=== PATIENT | female | born 1980 | race Two or more races ===

== ENCOUNTER 2024-05-24 07:48 | Outpatient (AMB) | payer MEDICAID, SELFPAY ==
--- NOTE | 2024-05-24 07:59 | A.OFFVIS_ITS ---
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 The patient describes her pain as sharp in nature. Her pain has gotten worse over the last year in spite of continued non operative treatments. She has failed the last 6 weeks of conservative treatment which has included Tylenol, anti-inflammatory medicines and physical therapy. The physical therapy seemed to exacerbate her symptoms. She states that her right knee will give out several times per day. The patient states that arthritis does run in her family. Medication List - Last Reconciled 05/24/24 by Steven Knight MD acetaminophen 500 mg PO Q6H PRN celecoxib (Celebrex) 200 mg PO DAILY PRN fluoxetine 40 mg PO DAILY hydroxyzine HCl 10 - 20 mg PO TID PRN methocarbamol 750 mg PO Q6H PRN pantoprazole 40 mg PO BID peg 3350-electrolytes 236-22.74-6.74 -5.86 gram (GaviLyte-G) mL PO Physical Exam Const Other: Well-nourished well-developed very friendly female awake alert and oriented x3 in no acute distress Extrem Other: Bilateral lower extremity examination shows good capillary refill, no skin lesions noted, normal sensation light touch Right knee examination shows a minimal effusion, mild crepitus with range of motion, tenderness along her medial joint line, positive Jenn's test, no instability Results Reviewed Results Reviewed: X-rays of the patient's right knee show mild joint space narrowing most significant in the medial compartment, no acute bony abnormalities Assessment & Plan Assessment & Plan (1) Right knee pain: Code(s): M25.561 - Pain in right knee Category: Medical Plan Ms. Alamo presents with progressively worsening right knee pain and mechanical symptoms most likely due to a medial meniscus tear. I will send her for an MRI of her right knee for further evaluation. I will see her back once the MRI is completed to discuss the findings and treatment options. I will also send her for blood work to rule out an autoimmune disease such as rheumatoid arthritis. I did give her a prescription for Celebrex to help with her symptoms in the meantime. Feel free to call me at any time should questions regarding her orthopedic management arise. Thank you very much for asking me to see this very friendly patient. I spent 22 minutes in reviewing the patient's records and imaging studies, seeing the patient and documenting in the medical record. Orders: Orders C Reactive Protein Today M25.50 - Pain in unspecified joint JESICA Reflex Titer and Pattern Today M25.50 - Pain in unspecified joint Lyme IgG/IgM w/reflex to WB Today M25.50 - Pain in unspecified joint MR knee RT wo con Today M25.561 - Pain in right knee XR knee RT 3V 05/08/24 M25.561 - Pain in right knee XR knee RT 3V Today M25.561 - Pain in right knee Erythrocyte Sedimentation Rate Today M25.50 - Pain in unspecified joint Rheumatoid Factor Today M25.50 - Pain in unspecified joint Medications: New celecoxib (Celebrex) 200 mg PO DAILY PRN 30 caps 3RF pain Coding Level of Care Code New Pt Level 3 (91627) Complex EM visit Add On G2211 Diagnoses Right knee pain M25.561
== END 2024-05-24 08:23 | disposition home or self-care (01) ==
PROVIDERS: PCP Physician Assistant; Referring Provider Physician Assistant; Visit Provider Orthopaedic Surgery
DX: M25.561 Pain in right knee (principal)
CPT/HCPCS: 99203

== ENCOUNTER 2024-05-24 14:14 | Outpatient (REF) | payer MEDICAID, SELFPAY ==
--- NOTE | ~2024-05-24 | XR_ITS ---
EXAMINATION: XR KNEE, RIGHT CLINICAL INFORMATION: Pain in the right knee COMPARISON: None available. TECHNIQUE: Four views of the right knee. FINDINGS: There is mild osteoarthritis of the medial compartment and patellofemoral compartment manifested by marginal osteophytes. Lateral compartment are unremarkable. Trace joint effusion. Surrounding bone and soft tissues unremarkable. XR/XR knee RT 3V IMPRESSION: Mild osteoarthritis of the right knee. Electronically signed by: Joseph Painting MD 05/30/2024 11:07 AM EDT
== END 2024-05-24 14:15 | disposition home or self-care (01) ==
LOC: HO.HOSX 14:14
PROVIDERS: Visit Provider Orthopaedic Surgery
DX: M25.561 Pain in right knee (principal); M25.50 Pain in unspecified joint
CPT/HCPCS: 73562; 99202

== ENCOUNTER 2024-06-23 18:49 | Outpatient (REF) | payer MEDICAID, SELFPAY ==
--- NOTE | ~2024-06-23 | MR_ITS ---
EXAMINATION: MR KNEE WITHOUT CONTRAST, RIGHT CLINICAL INFORMATION: Pain in the right knee. COMPARISON: X-ray of the right knee May 24, 2024. TECHNIQUE: MRI of the knee without contrast was performed using routine sequences on a high-field scanner. FINDINGS: MENISCI: Medial Meniscus: Intact Lateral Meniscus: There is horizontal increased signal in the posterior horn and body of the meniscus, extending to the free edge femoral articular surface, indicative of meniscal tear. There is an associated small meniscal cyst abutting the periphery of the meniscus. This cyst measures up to 15 mm AP, 5 mm craniocaudal and 3 mm transverse. Possible extension of the tear into the anterior horn. LIGAMENTS: Cruciate: Intact small enthesopathic cyst in the tibia at the posterior cruciate ligament attachment. Collateral: Intact EXTENSOR MECHANISM: Intact ARTICULAR CARTILAGE/BONE: Patellofemoral Compartment: There is a focal area of up to high-grade cartilage heterogeneity in the median ridge of the medial facet of the patella extending over approximately 1 cm transverse and craniocaudal. Trochlea cartilage: There is focal cartilage loss with small central osteophyte formation along the proximal medial trochlea . Overall cyut-bz-kyujotcz arthrosis. Medial Compartment: There are marginal osteophytes. Minimal scattered cartilage heterogeneity. Overall mild arthrosis. Lateral Compartment: There are small marginal osteophytes. There is scattered cartilage heterogeneity in the posterior weightbearing portion of the femoral articular surface, with some areas of partial thickness loss. There is a small central osteophyte measuring 3 mm. Overall vcef-ow-rkbetcfk arthrosis. Additional cartilage heterogeneity in the posterior tibial articular surface. Overall xslv-ae-jgokpwdn arthrosis. JOINT FLUID AND BURSAE: There is a mild joint effusion and trace Swartz's cyst. MR/MR knee RT wo con IMPRESSION: 1. Tear of the lateral meniscus with small meniscal cyst. 2. Xmjz-eu-styyggqn arthrosis of the patellofemoral compartment and lateral compartment. Mild arthrosis of the medial compartment. 3. Mild joint effusion and trace Swartz's cyst. Electronically signed by: Joseph Painting MD 07/08/2024 07:48 AM [facility]
== END 2024-06-23 18:50 | disposition home or self-care (01) ==
LOC: HO.MRI 18:49
PROVIDERS: PCP Physician Assistant; Visit Provider Orthopaedic Surgery
DX: M25.561 Pain in right knee (principal)
CPT/HCPCS: 73721

== ENCOUNTER 2024-09-11 11:09 | Outpatient (AMB) | payer MEDICAID, SELFPAY ==
--- NOTE | 2024-09-11 11:09 | MHC.OFFVIS ---
Intake Visit Reasons: TH-Right Knee MRI review Intake Note: Brittney is a 43 year old female who presents with complaints of progressively worsening right knee pain and giving way. The patient describes her pain as sharp in nature. Her pain has gotten worse over the last year in spite of continued non operative treatments. She has failed the last 6 weeks of conservative treatment which has included Tylenol, anti-inflammatory medicines and physical therapy. The physical therapy seemed to exacerbate her symptoms. She states that her right knee will give out several times per day. The patient states that arthritis does run in her family. Allergies No Known Allergies Allergy (Verified 09/11/24 11:12) Medication List - Last Reconciled 09/11/24 by Steven Knight MD acetaminophen 500 mg PO Q6H PRN celecoxib (Celebrex) 200 mg PO DAILY PRN fluoxetine 40 mg PO DAILY hydroxyzine HCl 10 - 20 mg PO TID PRN methocarbamol 750 mg PO Q6H PRN pantoprazole 40 mg PO BID peg 3350-electrolytes 236-22.74-6.74 -5.86 gram (GaviLyte-G) mL PO Physical Exam Const Other: telehealth Telehealth Telehealth Telehealth Platform: Telephone Location of provider rendering services: practice address Location of patient: address on file Patient Identification confirmed using: Name, : Yes Telehealth method: voice only Patient verbally consented to treatment: Yes Patient verbally consented to billing insurance company: Yes Patient informed of any privacy concerns related to visit: Yes Minutes spent on Phone/Video with Pt.: 14 Results Reviewed Results Reviewed: Standing full weight-bearing x-rays of the patient's right knee show mild diffuse joint space narrowing, no acute bony abnormalities MRI of the patient's right knee shows mild degenerative changes as well as tearing of her medial and lateral menisci Assessment & Plan Assessment & Plan (1) Tear of medial meniscus of right knee: Code(s): S83.241A - Other tear of medial meniscus, current injury, right knee, initial encounter Category: Medical Plan Ms. Alamo presents with progressively worsening right knee pain and mechanical symptoms due to tearing of her medial and lateral menisci. I had a lengthy discussion with the patient regarding the treatment options. At this point she has failed continued non operative treatments. The risks and benefits of right knee arthroscopic surgery were discussed at length with the patient. The patient wishes to proceed with surgery. Surgery will likely involve right knee arthroscopic partial medial and lateral meniscectomies. She does understand that she may not get 100% relief of her symptoms depending on the severity of her degenerative changes. The patient will be scheduled for next available date. She will follow-up as instructed. Feel free to call me at any time should questions regarding her orthopedic management arise. Coding Level of Care Code Tele Est Pt Level 2 (57690) Complex EM visit Add On G2211 Diagnoses Tear of medial meniscus of right knee S83.241E
--- OUTSIDE RECORDS SUMMARY | 2024-09-11 12:24 | XMS_ITS | Clinical Summary ---
Author Organization [facility] Address [address] [place] [address] Care Team Providers Care Maintenance Machine Repairer Name Role Phone Poly Gudino PA-C Primary Care Provider Source Comments PLEASE NOTE, if this patient is a minor, it may be UNLAWFUL to discuss sensitive information that is contained in these records (such as FAMILY PLANNING, MENTAL HEALTH or SUBSTANCE ABUSE) with the minor patient's parent or other person without the patient's specific authorization.[facility] Allergies No known active allergies Medications ferrous sulfate 325 mg (65 mg iron) tabletIndicati ons:Other iron deficiency anemia Take 1 Tablet by mouth 2 (two) times daily with a meal 180 Tablet 1 4 Active hydrOXYzine HCL (ATARAX) 10 mg tabletIndicati ons:Depression with anxiety Take 1 Tablet by mouth 3 (three) times daily as needed for anxiety 1-2 tablets TID as needed 90 Tablet 1 4 Active acetaminophen (TYLENOL) 500 mg tabletIndicati ons:Right leg pain Take 1 Tablet by mouth every 6 (six) hours as needed for pain 30 Tablet 4 Active pantoprazole (PROTONIX) 40 mg EC tabletIndicati ons:Other iron deficiency anemia,History of GI bleed TAKE 1 TABLET BY MOUTH TWICE A DAY 30 MINS BEFORE FOOD 90 Tablet 1 4 Active FLUoxetine (PROZAC) 40 mg capsuleIndicat ions:Depressio n with anxiety TAKE 1 CAPSULE BY MOUTH EVERY DAY 90 Capsule 1 5 Active FLUoxetine (PROZAC) 40 mg capsuleIndicat ions:Depressio n with anxiety Take 1 Capsule by mouth once daily 90 Capsule 1 4 08/27/19 25 Discontinued Active Problems Problem Noted Date Diagnosed Date Enlarged thyroid 03/15/2024 Thyroid nodule 03/15/2024 Financial difficulties 03/08/2023 Housing problems 03/08/2023 Lack of access to transportation 03/08/2023 History of GI bleed 01/21/2023 Depression with anxiety 09/17/2022 History of bariatric surgery 11/08/2018 Iron deficiency anemia 11/08/2018 Overview (08/20/2022): Required blood transfusion 2018 Family history of breast cancer in mother 2018 Overview (08/20/2022): MGM and M Aunt Last Assessment & Plan: Referral replaced for genetics. Resolved Problems Problem Noted Date Diagnosed Date Resolved Date Menorrhagia with regular cycle 12/20/2018 08/20/2022 Overview (08/20/2022): Last Assessment & Plan: Ok to restart Depo given tolerated well in the past and need to prevent bleeding due to iron deficiency anemia, but I recommended she wait until breast evaluated in case there is an abnormality which could be hormone sensitive. She agreed. Primary hypertension 11/08/2018 023 PCOS (polycystic ovarian syndrome) 11/08/2018 08/20/2022 Vertigo 11/08/2018 08/20/2022 Immunizations Name Administration Dates Next Due Flu, Multi Dose 0.5 ML 06/03/2022 Hep B,adult,adjuvanted (HEPLISAV) 02/24/2024 INFLUENZA, SEASONAL, INJECTABLE 06/04/2018,05/26 MODERNA COVID-19 VACCINE BIV ALENT, BLUE CAP, 6M+ 06/03/2022 Moderna COVID-19 Vaccine, re d cap blue label, 12+ Primary Series 06/03/2022,12/19/2021,12/14/2020 PNEUMOCOCCAL CONJUGATE PCV 20 (Prevnar) 02/24/20 24 PNEUMOCOCCAL POLYSACCHARIDE PPV23 05/26/2017 TDAP 08/20/2022,08/29/2011 Family History Medical History Relation Name Comments Diabetes Father Breast cancer Maternal Grandmother Breast cancer Mother remission No Known Problems Paternal Grandfather Stomach Cancer Paternal Uncle x 7 sibling s Relation Name Status Comments Father Alive Maternal Grandmother Alive Mother Alive Paternal Grandfather Paternal Uncle Social History Tobacco Use Types Packs/Day Years Used Date Smoking Tobacco: Every Day Cigarettes Passive Smoke Exposure: Never Smokeless Tobacco: Never Tobacco Cessation:Ready to Q uit: Not Asked; Counseling Given: Yes Comments:1/2 pack per week Alcohol Use Standard Drinks/Week Comments Yes 0 (1 standard drink = 0.6 oz pure alcohol) 1/2 bottle bourbon when drinks - every other day Social Connections Answer Date Recorded Connectedness 2 11/25/2023 Financial Resource Strain Answer Date R ecorded Financial Resource Strain 1 2023 Stress Answer Date Recorded Stress 2 11/25/2023 Physical Activity Answer Date Recorded Physical Activity 0 08/20/2022 Food Insecurity Answer Date Recorded Food 1 11/25/2023 Transportation Needs Answer Date Record ed Transportation 1 11/25/2023 Housing Stability Answer Date Recorded Housing 1 11/25/2023 Safety and Environment Answer Date Jr rded Safety 1 11/25/2023 Utilities Answer Date Recorded Utilities 1 11/25/2023 Employment Answer Date Recorded Stress 0 03/08/2023 Comments No Sex and Gender Information Value Date Recorded Sex Assigned at Female 08/15/2022 7:19 AM PST Legal Sex Female 6:49 AM PST Gender Identity Female 08/20/2022 11:37 AM PST Sexual Orientation Straight 08/20/2022 11 :37 AM PST Last Filed Vital Signs Vital Sign Reading Time Taken Comments Blood Pressure 120/90 02/24/2024 9:46 AM EDT Pulse 80 02/24/2024 9:46 AM EDT Temperature 37.1 ??C (98.8 ??F) 02/24/2024 9:46 AM ED T Respiratory Rate 16 02/24/2024 9:46 AM EDT Oxygen Saturation 100% 02/24/2024 9:46 AM EDT Inhaled Oxygen Concentration - - Weight 131.6 kg (290 lb 1.6 oz) 02/24/2024 9:46 AM EDT Height 167.6 cm (5' 6 ) 02/24/2024 9:46 AM EDT Body Mass Index 46.82 02/24/2024 9:46 AM EDT Plan of Treatment Upcoming Encounters Date Type Department Care Team (Late st Contact Info) Description 10/31/2024 11:20 AM EDT Office Visit [facility] [address] [place] [address] Poly Gudino PA-C [address] [place] [address] Health Maintenance Due Date Last Done Comments HPV Screening 1981 Pap + HPV 1981 Cervical Cancer Screening 01/14/2024 Pap Smear 01/14/2024 01/13/2021 Imm-Hepatitis B (2 of 2 - Cp G 2-dose series) 03/23/2024 02/24/2024 [id number] ( season) 2024 06/03/2022, 06/03/2022, 12/19/2021, Additional history exists Imm-Influenza (#1) 2024 06/03/2022, 1 , 05/26/2017 Depression Monitoring 05/26/2024 02/24/2024 , 11/25/2023, 02/01/2023, Additional history exists Alcohol and Drug Screen 08/15/2024 11/25/19 24, 02/01/2023, 08/20/2022 Dental BW 10/14/2024 10/12/2023 Dental Examination 10/14/2024 10/12/2023 Dental Perio Charting 10/14/2024 10/12/2023 Dental Prophy 10/14/2024 10/12/2023 Relationship Safety Screening/Counseling 11/24/2024 11/25/2023, 08/20/2022 Annual Preventive Care Visit 02/23/2025 02/24/2024, 08/20/2022 Hypertension Screening (#1) 02/23/2025 STI Counseling 02/23/2025 02/24/2024 Tobacco Cessation Counseling (#1) 02/23/2025 023 Breast Cancer Screening (Mammogram) 03/14/2025 03/14/2024 Diabetes Screening 02/23/2027 02/24/2024, 0 02/24/2024, 01/26/2023, Additional history exists Lipid Screening 02/23/2027 02/24/2024, 07/16, 08/20/2022 Dental FMX/Pano 10/14/2028 10/12/2023 Imm-DTaP/Tdap/Td (3 - Td or Tdap) 08/20/2032 023, 08/29/2011 HIV Screening Completed 11/25/2023, 02/14, 02/14/2023, Additional history exists Hepatitis C Screening Completed 11/25/2023 , 02/14/2023, 08/20/2022 Imm-Pneumococcal Completed 02/24/2024, 05/26/2017 Cervical Ablation/Cold-Knife Conization Discontinued Cervical Cryotherapy Discontinued Colposcopy Discontinued Endometrial Biopsy Discontinued Excision/Leep Discontinued HPV Genotyping Discontinued Vaginal Pap Discontinued Vulvoscopy Discontinued Procedures Procedure Name Priority Date/Time Associated Diagnosis Comments REFERRAL TO ENDOCRINOLOGY Urgent 06/29/2024 3:00 AM EST Enlarged thyroid Thyroid nodule IMAGING SCANNED DOCUMENT 06/23/2024 3:00 AM EST REFERRAL FOR MAMMOGRAM Routine 3:00 AM EDT Screening mammogram, encounter for HGA1C W/EAG Routine 02/24/2024 10:26 AM EDT Annual physical exam LIPIDS W RFLX TO DIRECT LDL Routine 02/24/2024 10:26 AM EDT Annual physical exam HIV 1/2 AG & AB W/RFLX (4TH GEN) Routine 11/25/2023 11:27 AM EDT Exposure to STD HEPATITIS C AB W/RFLX HCV RNA, QT, RT PCR Routine 11/25/2023 11:27 AM EDT Exposure to STD COMP PERIODONTAL EVALUATION - NEW/EST PATIENT Routine 10/12/2023 4:20 PM EST Caries Retained tooth root Caries of enamel (incipient) Full INTRAORAL - COMP SERIES OF RADIOGRAPHIC IMAGES Routine 10/12/2023 4:20 PM EST Caries Retained tooth root Caries of enamel (incipient) Full PROPHYLAXIS - ADULT Routine 10/12/2023 4:20 PM EST Caries Retained tooth root Caries of enamel (incipient) Full PERIODIC ORAL EVALUATION ESTABLISHED PATIENT Routine 10/12/2023 4:20 PM EST Caries Retained tooth root Caries of enamel (incipient) from Last 3 Months or Most Recently Relevant to Health Maintenance Results * REFERRAL TO ENDOCRINOLOGY (06/29/2024 3:00 AM EST) 06/29/2024 3:00 AM EST Poly Gudino PA-C REFERRAL Final Result * IMAGING SCANNED DOCUMENT (06/23/2024 3:00 AM EST) 06/23/2024 3:00 AM EST Poly Gudino PA-C SCAN IMAGING Final Result * REFERRAL FOR MAMMOGRAM (03/14/2024 3:00 AM EDT) 03/14/2024 3:00 AM EDT Poly Gudino PA-C IMG RFL MAMMO Final Result * HGA1C W/EAG (02/24/2024 10:26 AM EDT) HEMOGLOBIN A1C 5.3 <5.7 % of total Hgb [employer] Comment: For the purpose of screening for the presence of diabetes: <5.7% ? Consistent with the absence of diabetes 5.7-6.4% ?Consistent with increased risk for diabetes ?(prediabetes) > or =6.5% ??Consistent with diabetes This assay result is consistent with a decreased risk of diabetes. Currently, no consensus exists regarding use of hemoglobin A1c for diagnosis of diabetes in children. According to [place] Diabetes Association (ADA) guidelines, hemoglobin A1c <7.0% represents optimal control in non- diabetic patients. Different metrics may apply to specific patient populations. Standards of Medical Care in Diabetes(ADA). ?? EAG (MG/DL) 105 mg/dL SOHM EAG (MMOL/L) 5.8 mmol/L [facility] [employer] [facility] Blood Blood / Unknown 02/24/2024 1 0:26 AM EDT 02/24/2024 10:27 AM EDT Narrative [employer] [facility] - 02/25/2024 9:00 AM EDT FASTING:NO us Poly Gudino PA-C LAB - BLOOD DRAW Edited Resu lt - Final [employer] [address] [address], [employer] [facility] [address] [place] [address] * LIPIDS W RFLX TO DIRECT LDL (02/24/2024 10:26 AM EDT) CHOLESTEROL, TOTAL 169 <200 mg/dL [employer] [facility] HDL CHOLESTEROL 57 > OR = 50 mg/dL [employer] [facility] TRIGLYCERIDES 86 <150 mg/dL [employer] [facility] LDL-CHOLESTEROL 94 99 mg/dL (calc) [employer] [facility] Comment: Reference range: <100 Desirable range <100 mg/dL for primary prevention; ?? <70 mg/dL for patients with CHD or diabetic patients with > or = 2 CHD risk factors. LDL-C is now calculated using the Choco-Daley calculation, which is a validated novel method providing better accuracy than the Friedewald equation in the estimation of LDL-C. Choco CORREA et al. HUNTER. 2013;310(19): 8421-7940 (http://education.Cable-Sense/faq/JAM771) CHOL/HDLC RATIO 3.0 <5.0 (calc) [employer] [facility] NON-HDL CHOLESTEROL 112 <130 mg/dL (calc) [employer] [facility] Comment: For patients with diabetes plus 1 major ASCVD risk factor, treating to a non-HDL-C goal of <100 mg/dL (LDL-C of <70 mg/dL) is considered a therapeutic option. Blood Blood / Unknown 02/24/2024 1 0:26 AM EDT 02/24/2024 10:27 AM EDT Narrative [employer] [facility] - 02/25/2024 9:00 AM EDT FASTING:NO Poly ENGLAND-C LAB - BLOOD DRAW Final Resul t Performing Organization Address [facility]/ZIP Co de Phone Number [employer] [address] [address], [employer] [address] [address] * HEPATITIS C AB W/RFLX HCV RNA, QT, RT PCR (11/25/2023 11:27 AM EDT) HEPATITIS C ANTIBODY NON-REACT ANTHONY NON-REACT ANTHONY [facility] Comment: HCV antibody was non-reactive. There is no laboratory evidence of HCV infection. In most cases, no further action is required. However, if recent HCV exposure is suspected, a test for HCV RNA (test code 16495) is suggested. For additional information please refer to http://education.Homuork/faq/ILE46c7 (This link is being provided for informational/ educational purposes only.) Blood Blood / Unknown 11/25/2023 1 1:27 AM EDT 11/25/2023 11:28 AM EDT Narrative [employer] [facility] - 11/28/2023 4:55 PM EDT FASTING:YES Poly ENGLAND-C LAB - BLOOD DRAW Edited Resu lt - Final Performing Organization Address [facility] Co de Phone Number [employer] [address] [address], [employer] [address] [address] * HIV 1/2 AG & AB W/RFLX (4TH GEN) (11/25/2023 11:27 AM EDT) HIV AG/AB, 4TH GEN NON-REAC TIVE NON-REAC TIVE [facility] Comment: HIV-1 antigen and HIV-1/HIV-2 antibodies were not detected. There is no laboratory evidence of HIV infection. PLEASE NOTE: This information has been disclosed to you from records whose confidentiality may be protected by state law. ??If your state requires such protection, then the state law prohibits you from making any further disclosure of the information without the specific written consent of the person to whom it pertains, or as otherwise permitted by law. A general authorization for the release of medical or other information is NOT sufficient for this purpose. ?? For additional information please refer to http://education.Homuork/faq/CHZ765 (This link is being provided for informational/ educational purposes only.) The performance of this assay has not been clinically validated in patients less than 2 years old. Blood Blood / Unknown 11/25/2023 1 1:27 AM EDT 11/25/2023 11:28 AM EDT Narrative [facility] [employer] [facility] - 11/28/2023 4:55 PM EDT FASTING:YES Poly Gudino PA-C LAB - BLOOD DRAW Final Resul t [facility] [employer] [address] [place] [id number], [employer] [facility] [employer] [address] [place] [phone] from Last 3 Months or Most Recently Relevant to Health Maintenance Insurance [place] [facility] [employer] [address] [employer] Care Teams Maintenance Machine Repairer Relationship Specialty Start Date End Date Poly Gudino PA-C [address] [place] [id number] PCP - General Internal Medicine 05/27/23
--- OUTSIDE RECORDS SUMMARY | 2024-09-11 12:24 | XMS_ITS | Clinical Summary ---
Author Organization [address] [facility] Address [address] [place] [address] Phone Care Team Providers Care Bailer Tenders Supervisor Name Role Phone Poly Gudino Primary Care Provider Allergies No known active allergies Medications Medication Sig Dispensed Refills Start Date End Date Status bisacodyL (DULCOLAX) 5 mg EC tablet Take 2 tabs by mouth right before beginning bowel prep. Follow instructions given by office for timing. 12/27/2023 Active polyethylene glycol 3350 (MIRALAX ORAL) 01/10/2023 Activ e ferrous sulfate 325 mg (65 mg iron) EC tablet Take 1 tablet (325 mg total) by mouth 2 (two) times a day. Active pantoprazole (PROTONIX) 20 mg EC tablet Take 2 Tabs by mouth daily for 180 days. 10/26/2018 Active clotrimazole-betame thasone (LOTRISONE) 1-0.05 % cream Apply to area sparingly twice a day for up to two weeks 02/28/2020 Active cholecalciferol (VITAMIN D-3) 1,250 mcg (50,000 unit) capsule Take 1 Capsule by mouth once a week. 08/06/2023 Active HYDROXYZINE HCL ORAL Take by mouth as needed. Active polyethylene glycol (GoLYTELY) 236-22.74-6.74 -5.86 gram solution 12/21/2023 Activ e Active Problems Problem Noted Date Diagnosed Date Gastric ulcer 05/10/2024 GERD (gastroesophageal reflux disease) 4 Class 3 severe obesity with body mass index (BMI) of 45.0 to 49.9 in adult 05/10/2024 Inverted nipple 12/20/2018 Menorrhagia with regular cycle 12/20/2018 Overview (05/10/2024): Last Assessment & Plan: Ok to restart Depo given tolerated well in the past and need to prevent bleeding due to iron deficiency anemia, but I recommended she wait until breast evaluated in case there is an abnormality which could be hormone sensitive. She agreed. Nipple discharge 12/20/2018 Overview (05/10/2024): Last Assessment & Plan: Reassured pt that this appears physiologic and given that I can express similar fluid from the left nipple, it is likely benign. However, given inverted nipple and family history, would recommend she have US to ensure no evidence of mass behind nipple. Can check prolactin at a later date, but would be elevated now just from exam. Chronic back pain 11/08/2018 Arthritis 11/08/2018 Hypertension 11/08/2018 Iron deficiency anemia 11/08/2018 Overview (05/10/2024): Required blood transfusion 2018 PCOS (polycystic ovarian syndrome) 11/08/2018 Vertigo 11/08/2018 Social History Tobacco Use Types Packs/Day Years Used Date Smoking Tobacco: Every Day Alcohol Use Standard Drinks/Week Comments Not Currently 0 (1 standard drink = 0.6 oz pur e alcohol) Sex and Gender Information Value Date Recorded Sex Assigned at Not on file Gender Identity Not on file Sexual Orientation Not on file Job Start Date Occupation Industry Not on file Not on file Not on file Obstetrics History Last Filed Vital Signs Vital Sign Reading Time Taken Comments Blood Pressure 108/70 02/28/2024 10:14 AM EDT Pulse 83 02/28/2024 10:14 AM EDT Temperature - - Respiratory Rate - - Oxygen Saturation - - Inhaled Oxygen Concentration - - Weight 131 kg (288 lb) 06/12/2024 9:42 AM EDT Height 170.2 cm (5' 7 ) 02/28/2024 10:12 AM EDT Body Mass Index 45.11 02/28/2024 10:12 AM EDT Plan of Treatment Upcoming Encounters Date Type Department Care Team (Late st Contact Info) Description 09/18/2024 2:15 PM EST Office Visit Bariatric Surgery - [employer] [facility] [address] [facility] [address] [place] [address] Olamide Plasencia PA [address] [facility] [address] [place] [address] Health Maintenance Due Date Last Done Comments Pneumococcal Vaccine: Pediat rics (0 to 5 Years) and At-Risk Patients (6 to 64 Years) (1 of 2 - PCV) 11/05/1987 DTaP,Tdap,and Td Vaccines (1 - Tdap) 2000 Hepatitis B Vaccines (1 of 3 - 19+ 3-dose series) 2000 Cervical Cancer Screening: P ap Smear 2002 Breast Cancer Screening 12/29/2020 12/29/2018 Depression Screening 07/24/2022 HIV Screening 07/24/2022 Hepatitis C Screening 07/24/2022 Social Influencers of Health Screening 07/24/2022 COVID-19 Vaccine ( - 2023-2 5 season) 2024 Influenza Vaccine (#1) 2024 Hypertension/CHF/CAD Annual BMP Blood Test 08/05/2024 08/05/2023 Cholesterol Screening (Lipid Panel) 08/05/2028 08/05/2023 HIB Vaccines Aged Out No longer eligi ble based on patient's age to complete this topic HPV Vaccines Aged Out No longer eligi ble based on patient's age to complete this topic Hepatitis A Vaccines Aged Out No long er eligible based on patient's age to complete this topic IPV Vaccines Aged Out No longer eligi ble based on patient's age to complete this topic MMR Vaccines Aged Out No longer eligi ble based on patient's age to complete this topic Meningococcal ACWY Vaccine Aged Out N o longer eligible based on patient's age to complete this topic RSV Immunization Patients Un cally 20 months Aged Out No longer eligible b ased on patient's age to complete this topic Varicella Vaccines Aged Out No longer eligible based on patient's age to complete this topic Procedures Procedure Name Priority Date/Time Associated Diagnosis Comments ANNUAL BMP BLOOD TEST Routine 08/05/2023 LIPID PANEL Routine 08/05/2023 DX MAMMO INCL CAD UNI Routine 12/29/2018 2:37 PM EDT Nipple discharge from Last 3 Months or Most Recently Relevant to Health Maintenance Results * Annual BMP Blood Test (08/05/2023) Annual BMP Blood Test ABSTRACTED Historical Provider MD TRIPP PUCKETT E * Lipid panel (08/05/2023) LDL/HDL Ratio 3 0 - 4 Triglycerides 98 0 - 150 mg/dL Cholesterol 174 0 - 200 mg/dL HDL 64 40 mg/dL LDL Cholesterol 91 0 - 100 mg/dL Blood Venous blood specimen / Unknown Historical Provider LAB BLOOD ORDERAB LES * DX MAMMO INCL CAD UNI (12/29/2018 2:37 PM EDT) Anatomical Region Laterality Modality Mammography 12/20/2018 4:18 PM EDT Narrative 12/29/2018 3:25 PM EDT This is a summary report. The complete report is available in the patient's medical record. If you cannot access the medical record, please contact the sending organization for a detailed fax or copy. Bilateral mammogram. Limited ultrasound of the right breast. History 38 years old female with strong family history for breast cancer. Right nipple discharge for approximately 3 weeks is a clear, whitish, yellowish fluid. Full-field digital mammograms were obtained. Compared with CAD. Additional spot compression cc view of the right breast was obtained. No prior studies available for comparison. There is mixed density breast Glenn. There is no suspicious masses, microcalcifications or architectural distortion. Limited ultrasound of the right breast was performed with attention to the retroareolar area in the upper outer upper inner and lower outer and lower inner quadrants. No cystic or solid masses or acoustic shadowing identified. Conclusions: No mammographic or ultrasonographic evidence for malignancy. Considering patient's strong family history for breast cancer as well as the nipple discharge MRI examination with contrast is recommended for further assessment. Findings were explained to the patient. Patient was advised to follow with his provider for referral for the breast MRI. BI-RADS 0, incomplete, needs additional imaging evaluation. Procedure Note Keely Manning MD - 08/03/2022 This is a summary report. The complete report is available in thepatient's medical record. If you cannot access the medical record, pleasecontact the sending organization for a detailed fax or copy. Bilateral mammogram. Limited ultrasound of the right breast. History 38 years old female with strong family history for breast cancer.Right nipple discharge for approximately 3 weeks is a clear, whitish,yellowish fluid. Full-field digital mammograms were obtained. Compared with CAD. Additionalspot compression cc view of the right breast was obtained. No priorstudies available for comparison. There is mixed density breast Glenn. There is no suspicious masses,microcalcifications or architectural distortion. Limited ultrasound of the right breast was performed with attention to theretroareolar area in the upper outer upper inner and lower outer and lowerinner quadrants. No cystic or solid masses or acoustic shadowingidentified. Conclusions: No mammographic or ultrasonographic evidence for malignancy.Considering patient's strong family history for breast cancer as well asthe nipple discharge MRI examination with contrast is recommended forfurther assessment. Findings were explained to the patient. Patient wasadvised to follow with his provider for referral for the breast MRI. BI-RADS 0, incomplete, needs additional imaging evaluation. Hawa Mckeon MD IMG BI PROCEDURES from Last 3 Months or Most Recently Relevant to Health Maintenance Care Teams Bailer Tenders Supervisor Relationship Specialty Start Date End Date Poly Gudino PA [address] [place] [address] [facility] - General 02/24/24
--- OUTSIDE RECORDS SUMMARY | 2024-09-11 12:24 | XMS_ITS | Clinical Summary ---
Author Organization [facility] Address [address] [place] [address] Care Team Providers Care Revenue Audit Clerk Name Role Phone Poly Gudino PA-C Primary Care Provid er Medications Medication Sig Dispensed Refills Start Date End Date Status FLUoxetine (PROzac) 10 MG capsule Take 1 capsule (10 mg total) by mouth daily. 0 Active hydrOXYzine (ATARAX) 25 MG tablet Take 1 tablet (25 mg total) by mouth. 0 Active pantoprazole (PROTONIX) 40 MG tablet Take 1 tablet (40 mg total) by mouth every morning on an empty stomach. 0 Active ferrous sulfate 325 (65 FE) MG tablet Take 1 tablet (325 mg total) by mouth every morning with breakfast. 0 Active Active Problems Problem Noted Date Diagnosed Date Iron deficiency anemia due to chronic blood loss 02/28/2024 Social History Tobacco Use Types Packs/Day Years Used Date Smoking Tobacco: Every Day Cigarettes Tobacco Cessation:Ready to Q uit: Not Asked; Counseling Given: Not Answered Comments:Currently smoking 3-4 cigs a day Alcohol Use Standard Drinks/Week Comments Not Currently 0 (1 standard drink = 0.6 oz pure alcohol) Stopped drinking in 2022 after GI bleed Sex and Gender Information Value Date Recorded Sex Assigned at Female 02/02/2024 11:31 AM EDT Gender Identity Not on file Sexual Orientation Not on file Job Start Date Occupation Industry Not on file Not on file Not on file Last Filed Vital Signs Vital Sign Reading Time Taken Comments Blood Pressure 141/89 03/22/2024 4:00 PM EDT Pulse 81 03/22/2024 4:00 PM EDT Temperature 36.6 ??C (97.8 ??F) 03/22/2024 4:00 PM ED T Respiratory Rate 18 03/22/2024 4:00 PM EDT Oxygen Saturation 99% 03/22/2024 4:00 PM EDT Inhaled Oxygen Concentration - - Weight 132.1 kg (291 lb 3.6 oz) 03/08/2024 1:49 PM EDT Height 170.2 cm (5' 7 ) 02/28/2024 10:1 2 AM EDT Body Mass Index 45.61 02/28/2024 10:12 AM EDT Plan of Treatment Health Maintenance Due Date Last Done Comments COVID-19 Vaccine (#1) 05/07/1982 Depression Screening 1993 BMI Counseling 11/05/1999 Preventative Health Evaluation 11/05/1999 Tobacco Cessation Counseling 11/05/1999 Cervical Cancer Screening (Pap Smear) 2002 Hepatitis B Vaccines (2 of 2 - CpG 2-dose series) 03/23/2024 02/24/2024 Influenza Vaccine (#1) 2024 , 06/04/2018, 05/26/2017 DTap / Tdap / Td (3 - Td or Tdap) 08/20/2032 08/20/2022, 08/29/2011 Hepatitis C Screening Completed 11/25/2023 Pneumococcal Vaccine Completed 02/24/2024, 05/26/2017 RSV Ped < 20 months Aged Out No longe r eligible based on patient's age to complete this topic Care Teams Revenue Audit Clerk Relationship Specialty Start Date End Date Poly Gudino PA-C [address] [place] [address] PCP - General Physician [employer] 02/02/24
== END 2024-09-11 11:31 | disposition home or self-care (01) ==
LOC: HO.HOS 11:09
PROVIDERS: PCP Physician Assistant; Visit Provider Orthopaedic Surgery
DX: S83.241A Other tear of medial meniscus, current injury, right knee, initial encounter (principal); S83.281A Other tear of lateral meniscus, current injury, right knee, initial encounter
CPT/HCPCS: 99214

== ENCOUNTER → 2024-09-11 11:09 | Outpatient (BNVA) | payer MEDICAID, SELFPAY | PROVIDERS: PCP Physician Assistant; Visit Provider Orthopaedic Surgery ==

== ENCOUNTER 2024-12-12 10:22 | Outpatient (AMB) | payer MEDICAID, SELFPAY ==
--- NOTE | 2024-12-12 10:30 | A.OFFVIS_ITS ---
Vital Signs 12/12/24 10:34 Height 5 ft 7 in Weight 290 lb BMI 45.4 Intake Visit Reasons: Preop RT Knee 12/21/24 DR Intake Note: Brittney is a 44 year old female who presents with complaints of progressively worsening right knee pain and giving way. The patient describes her pain as sharp in nature. Her pain has gotten worse over the last year in spite of continued non operative treatments. She has failed the last 6 weeks of conservative treatment which has included Tylenol, anti-inflammatory medicines and physical therapy. The physical therapy seemed to exacerbate her symptoms. She states that her right knee will give out several times per day. The patient states that arthritis does run in her family. 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 Physical Exam Vital Signs: BMI result Body Mass Index 45.4 Const Other: Well-nourished well-developed very friendly female awake alert and oriented x3 in no acute distress Extrem Other: Bilateral lower extremity examination shows good capillary refill, no skin lesions noted, normal sensation light touch Right knee examination shows a minimal effusion, minimal crepitus with range of motion, tenderness along her medial and lateral joint lines, no instability, positive Jenn's test Results Reviewed Results Reviewed: Standing full weight-bearing x-rays of the patient's right knee show mild diffuse joint space narrowing, no acute bony abnormalities MRI of the patient's right knee shows mild diffuse degenerative changes as well as tearing of her medial and lateral menisci Assessment & Plan Assessment & Plan (1) Tear of medial meniscus of right knee: Code(s): S83.241A - Other tear of medial meniscus, current injury, right knee, initial encounter Category: Medical Plan Ms. Alamo presents with right knee pain and mechanical symptoms due to tearing of her medial and lateral menisci. I had a lengthy discussion with the patient regarding the treatment options. At this point she has failed continued non operative treatments. The risks and benefits of right knee arthroscopic surgery were discussed at length with the patient. The patient wishes to proceed with surgery. Surgery will most likely involve right knee arthroscopic partial medial and lateral meniscectomies. The patient does understand that she may not get 100% relief of her symptoms depending on the severity of her degenerative changes. She was given a prescription for oxycodone at her preoperative appointment. She will follow-up as instructed. Feel free to call me at any time should questions regarding her orthopedic management arise. I spent 21 minutes in reviewing the patient's records and imaging studies, seeing the patient and documenting in the medical record. Coding Level of Care Code Est Pt Level 3 (61321) Complex EM visit Add On G2211 Diagnoses Tear of medial meniscus of right knee S83.241A
[2024-12-12 10:34] VITALS: BMI 45.4
--- OUTSIDE RECORDS SUMMARY | 2024-12-12 11:44 | XMS_ITS | Clinical Summary ---
Author Organization [facility] Address [address] [place] [address] Care Team Providers Care Foreign Banknote Teller Trader Name Role Phone Poly Gudino PA-C Primary [...] EVERY DAY 90 Capsule 1 5 Active folic acid (FOLVITE) 1 mg tabletIndicati ons:Low folate Take 1 Tablet by mouth once daily 90 Tablet 5 Active tranexamic acid (LYSTEDA) 650 mg tablet Take 2 Tablets by mouth 3 (three) times daily for 90 days During menses only. 90 Tablet 2 5 02/12/20 25 Active mefenamic acid (PONSTEL) 250 mg capsule Take 1 Capsule by mouth every 8 (eight) hours as needed for pain or other reason (during menses only. Take with acetaminophen but do not use ibuprofen nor naproxen) 60 Capsule 3 5 Active Active Problems Problem Noted Date Diagnosed [...] ovarian syndrome) 11/08/2018 08/20/2022 Vertigo 11/08/2018 08/20/2022 Encounters Date Type Department Care Team Description 11/13/2024 3:00 PM EDT Office Visit [address] [phone] Colt Berkowitz MD Excessive or frequent menstruation (Primary Dx); Iron deficiency anemia due to chronic blood loss 11/09/2024 Results Follow-Up [address] [phone] Poly Gudino PA-C Other iron deficiency anemia (Primary Dx); Low folate 10/31/2024 11:20 AM EDT Office Visit [address] [phone] Poly Gudino PA-C Other iron deficiency anemia (Primary Dx); Thyroid nodule; Menorrhagia with regular cycle; Blurry vision, bilateral from Last 3 Months Immunizations Immunization Administration Dates Next Due Flu, Multi Dose [...] Types Packs/Day Years Used Date Smoking Tobacco: Some Days Cigarettes Passive Smoke Exposure: Never Smokeless Tobacco: Never Comments:1/2 pack per week Alcohol Use Standard Drinks/Week Comments Yes 0 (1 standard drink = 0.6 oz pur e alcohol) occasionally Social Connections Answer Date Recorded Connectedness 2 [...] Sign Reading Time Taken Comments Blood Pressure 127/88 11/13/2024 3:14 PM EDT Pulse 76 11/13/2024 3:14 PM EDT Temperature 36.9 ??C (98.4 ??F) 10/31/2024 11:50 AM E DT Respiratory Rate 16 11/13/2024 3:14 PM EDT Oxygen Saturation 100% 11/13/2024 3:14 PM EDT Inhaled Oxygen Concentration - - Weight 135.6 kg (299 lb) 11/13/2024 3:14 PM EDT Height 167.6 cm (5' 6 ) 11/13/2024 3:14 PM EDT Body Mass Index 48.26 11/13/2024 3:14 PM EDT Plan of Treatment Upcoming Encounters Date Type Department Care Team (Late st Contact Info) Description 12/17/2024 2:00 PM EDT Office Visit [facility] [address] [place] [address] Poly Gudino PA-C [address] [place] [address] 01/03/2025 8:40 AM EDT Office Visit [address] [place] [phone] Formyeceniano Fang, DO [address] [place] [address] Health Maintenance Due Date Last Done Comments Anxiety Screening 1981 HPV Screening 1981 Pap + HPV 1981 Pap Smear 01/14/2024 01/13/2021 Imm-Hepatitis B (2 of 2 - CpG 2-dose series) 03/23/2024 02/24/2024 [id number] (5 - 2024-25 season) 2024 06/03/2022, 06/03/2022, 12/19/2021, Additional history exists Imm-Influenza (#1) 2024 06/03/2022, 1 , 05/26/2017 Dental BW 10/14/2024 10/12/2023 Dental Examination 10/14/2024 10/12/2023 Dental Perio Charting 10/14/2024 10/12/2023 Dental Prophy 10/14/2024 10/12/2023 Relationship Safety Screening/Counseling 11/24/2024 11/25/2023, 08/20/2022 Cervical Cancer Screening 01/31/2025 Po stponed from 1981 (Patient postponement) Depression Monitoring 01/31/2025 10/31/2024 , 02/24/2024, 11/25/2023, Additional history exists Annual Preventive Care Visit 02/23/2025 02/24/2024, 08/20/2022 Breast Cancer Screening (Mammogram) 03/14/2025 03/14/2024 Tobacco Cessation Counseling (#1) 10/31/2025 08/20/2022 Hypertension Screening (#1) 11/13/2025 Diabetes Screening 02/23/2027 02/24/2024, 0 02/24/2024, 08/05/2023, Additional history exists Lipid Screening 02/23/2027 02/24/2024, 07/16, 08/20/2022 Dental FMX/Pano 10/14/2028 10/12/2023 Imm-DTaP/Tdap/Td (3 - Td or Tdap) 08/20/2032 08/20/2022, 08/29/2011 HIV Screening Completed 11/25/2023, 02/14, 02/14/2023, Additional history exists Hepatitis C Screening Completed 11/25/2023 , 02/14/2023, 08/20/2022 Imm-Pneumococcal Completed 02/24/2024, 05/26/2017 Alcohol and Drug Screen Completed 11/01/19, 11/25/2023, 02/01/2023, Additional history exists Cervical Ablation/Cold-Knife Conization Discontinued Cervical Cryotherapy Discontinued Colposcopy Discontinued Endometrial Biopsy Discontinued Excision/Leep Discontinued HPV Genotyping Discontinued Vaginal Pap Discontinued Vulvoscopy Discontinued Procedures Procedure Name Priority Date/Time Associated Diagnosis Comments REFERRAL SCANNED DOCUMENT 11/29/2024 3:00 AM EDT VITAMIN B12 & FOLATE Routine 10/31/2024 12:08 PM EDT Other iron deficiency anemia IRON, TIBC, FERRITIN PANEL Routine 10/31/2024 12:08 PM EDT Other iron deficiency anemia BLOOD COUNT COMPLETE AUTO&AUTO DIFRNTL WBC Routine 10/31/2024 12:08 PM EDT Other iron deficiency anemia REFERRAL SCANNED DOCUMENT 09/18/2024 3:00 AM EST REFERRAL FOR MAMMOGRAM Routine 03/14/2024 3:00 AM EDT Screening mammogram, encounter for [...] Relevant to Health Maintenance Results * REFERRAL SCANNED DOCUMENT (11/29/2024 3:00 AM EDT) Only the most recent of2 resultswithin the time period is included. 11/29/2024 3:00 AM EDT Poly Gudino PA-C SCAN REFERRAL Final Result * (ABNORMAL) IRON, TIBC, FERRITIN PANEL (10/31/2024 12:08 PM EDT) [facility] IRON, TOTAL 29(L) 40 - 190 mcg/dL [facility] IRON BINDING CAPACITY 512(H) 250 - 450 mcg/dL (calc) [facility] % SATURATION 6(L) 16 - 45 % (calc) [facility] FERRITIN 4(L) 16 - 232 ng/mL [facility] Blood Blood / Unknown 10/31/2024 1 2:08 PM EDT 10/31/2024 12:09 PM EDT Narrative [facility] - 11/01/2024 5:56 AM EDT FASTING:NO Poly Gudino PA-C LAB - BLOOD DRAW Final Resul t [facility] [address] [address], [facility] [address] [place] [address] * (ABNORMAL) VITAMIN B12 & FOLATE (10/31/2024 12:08 PM EDT) [facility] VITAMIN B12 550 200 - 1,100 pg/mL [facility] FOLATE, SERUM 5.0(L) 5.5 ng/mL [facility] Comment: ? Reference Range ? Low: ? <3.4 ? Borderline: ?3.4-5.4 ? Normal: ?>5.4 Blood Blood / Unknown 10/31/2024 1 2:08 PM EDT 10/31/2024 12:09 PM EDT Narrative [facility] - 11/01/2024 5:56 AM EDT FASTING:NO us Poly Gudino PA-C LAB - BLOOD DRAW Final Resul t [facility] [address] [address], [employer] [facility] [address] [place] [address] * (ABNORMAL) BLOOD COUNT COMPLETE AUTO&AUTO DIFRNTL WBC (10/31/2024 12:08 PM EDT) Pathologist [facility] WHITE BLOOD CELL COUNT 7.9 3.8 - 10.8 Thousand/ uL [facility] RED BLOOD CELL COUNT 4.81 3.80 - 5.10 Million/u L [facility] HEMOGLOBIN 11.0(L) 11.7 - 15.5 g/dL [facility] HEMATOCRIT 36.2 35.0 - 45.0 % [facility] MCV 75.3(L) 80.0 - 100.0 fL [facility] MCH 22.9(L) 27.0 - 33.0 pg [facility] MCHC 30.4(L) 32.0 - 36.0 g/dL [facility] Comment: For adults, a slight decrease in the calculated MCHC value (in the range of 30 to 32 g/dL) is most likely not clinically significant; however, it should be interpreted with caution in correlation with other red cell parameters and the patient's clinical condition. RDW 15.5(H) 11.0 - 15.0 % [facility] PLATELET COUNT 316 140 - 400 Thousand/ uL [facility] MPV 11.1 7.5 - 12.5 fL [facility] ABSOLUTE NEUTROPHILS 5,246 1,500 - 7,800 cells/uL [facility] ABSOLUTE LYMPHOCYTES 1,912 850 - 3,900 cells/uL [facility] [facility] ABSOLUTE MONOCYTES 632 200 - 950 cells/uL [facility] [place] [employer] ABSOLUTE EOSINOPHILS 40 15 - 500 cells/uL [facility] [place] [employer] ABSOLUTE BASOPHILS 71 0 - 200 cells/uL [facility] [place] [employer] NEUTROPHILS PCT 66.4 % [facility] LYMPHOCYTES 24.2 % [facility] MONOCYTES 8.0 % [facility] EOSINOPHILS 0.5 % [facility] BASOPHILS 0.9 % [facility] Blood Blood / Unknown 10/31/2024 1 2:08 PM EDT 10/31/2024 12:09 PM EDT Narrative [facility] - 11/01/2024 5:56 AM EDT FASTING:NO Poly Gudino PA-C LAB - BLOOD DRAW Edited Resu lt - Final [facility] [address] [place] [address], [employer] [address] [address] * REFERRAL FOR MAMMOGRAM (03/14/2024 3:00 AM EDT) 03/14/2024 3:00 AM EDT us Poly Gudino PA-C IMG RFL MAMMO Final Result * HGA1C W/EAG (02/24/2024 10:26 AM EDT) HEMOGLOBIN A1C 5.3 <5.7 % of total Hgb [employer] [facility] Comment: For the purpose of screening for the presence of diabetes: <5.7% ? Consistent with the absence of diabetes 5.7-6.4% ?Consistent with increased risk for diabetes ?(prediabetes) > or =6.5% ??Consistent with diabetes This assay result is consistent with a decreased risk of diabetes. Currently, no consensus exists regarding use of hemoglobin A1c for diagnosis of diabetes in children. According to [place] Diabetes Association (ADA) guidelines, hemoglobin A1c <7.0% represents optimal control in non- diabetic patients. Different metrics may apply to specific patient populations. Standards of Medical Care in Diabetes(ADA). ?? EAG (MG/DL) 105 mg/dL [email or web address] [facility] [employer] [facility] EAG (MMOL/L) 5.8 mmol/L [facility] [employer] [facility] Blood Blood / Unknown 02/24/2024 1 0:26 AM EDT 02/24/2024 10:27 AM EDT Narrative [facility] - 02/25/2024 9:00 AM EDT FASTING:NO us Poly Gudino PA-C LAB - BLOOD DRAW Edited Resu lt - Final [facility] [address] [address], [employer] [address] [address] * LIPIDS W RFLX TO DIRECT LDL (02/24/2024 10:26 AM EDT) CHOLESTEROL, TOTAL 169 <200 mg/dL [facility] HDL CHOLESTEROL 57 > OR = 50 mg/dL [employer] [facility] TRIGLYCERIDES 86 <150 mg/dL [facility] LDL-CHOLESTEROL 94 99 mg/dL (calc) [facility] [facility] Comment: Reference range: <100 Desirable range <100 mg/dL for primary prevention; ?? <70 mg/dL for patients with CHD or diabetic patients with > or = 2 CHD risk factors. LDL-C is now calculated using the Choco-Edi calculation, which is a validated novel method providing better accuracy than the Friedewald equation in the estimation of LDL-C. Choco CORREA et al. HUNTER. 2013;310(19): 2298-8757 (http://education.Best Five Reviewed.Boommy Fashion/faq/FWG706) CHOL/HDLC RATIO 3.0 <5.0 (calc) [employer] [facility] NON-HDL CHOLESTEROL 112 <130 mg/dL (calc) [facility] Comment: For patients with diabetes plus 1 major ASCVD risk factor, treating to a non-HDL-C goal of <100 mg/dL (LDL-C of <70 mg/dL) is considered a therapeutic option. Blood Blood / Unknown 02/24/2024 1 0:26 AM EDT 02/24/2024 10:27 AM EDT Narrative [facility] - 02/25/2024 9:00 AM EDT FASTING:NO [employer] LAB - BLOOD DRAW Final Resul t Performing Organization Address [facility] Co de Phone Number [facility] [address] [address], [employer] [address] [address] * HEPATITIS C AB W/RFLX HCV RNA, QT, RT PCR (11/25/2023 11:27 AM EDT) Pathologist [facility] HEPATITIS C ANTIBODY NON-REACT ANTHONY NON-REACT ANTHONY [facility] Comment: HCV antibody was non-reactive. There is no laboratory evidence of HCV infection. In most cases, no further action is required. However, if recent HCV exposure is suspected, a test for HCV RNA (test code 18413) is suggested. For additional information please refer to http://education.LuckyCal/faq/QQB88p2 (This link is being provided for informational/ educational purposes only.) Blood Blood / Unknown 11/25/2023 1 1:27 AM EDT 11/25/2023 11:28 AM EDT Narrative [facility] - 11/28/2023 4:55 PM EDT FASTING:YES [employer] LAB - BLOOD DRAW Edited Resu lt - Final [facility] [address] [address], [employer] [address] [address] * HIV 1/2 AG & AB W/RFLX (4TH GEN) (11/25/2023 11:27 AM EDT) HIV AG/AB, 4TH GEN NON-REAC TIVE NON-REAC TIVE [facility] Comment: HIV-1 antigen and HIV-1/HIV-2 antibodies were [...] ?? For additional information please refer to http://education.LuckyCal/faq/MOX598 (This link is being provided for informational/ educational purposes only.) The performance of this assay has not been clinically validated in patients less than 2 years old. Blood Blood / Unknown 11/25/2023 1 1:27 AM EDT 11/25/2023 11:28 AM EDT Narrative [email or web address] [employer] - 11/28/2023 4:55 PM EDT FASTING:YES Poly Gudino PA-C LAB - BLOOD DRAW Final Resul t [facility] [employer] [address] [address], [facility] [address] [address] from Last 3 Months or Most Recently Relevant to Health Maintenance Insurance [place] D[place] [facility] C3 [facility] Care Teams Foreign Banknote Teller Trader Relationship Specialty Start Date End Date Poly Gudino PA-C [address] [place] [id number] PCP - General Internal Medicine 05/27/23
--- OUTSIDE RECORDS SUMMARY | 2024-12-12 11:44 | XMS_ITS | Clinical Summary ---
Author Organization [facility] Address [address] [place] [address] Care Team Providers Care Underwriting Clerks Supervisor Name Role Phone Poly Gudino PA-C Primary [...] age to complete this topic Care Teams Underwriting Clerks Supervisor Relationship Specialty Start Date End Date Poly Gudino PA-C [address] [place] [address] PCP - General Physician Cloth Doffer 02/02/24
--- OUTSIDE RECORDS SUMMARY | 2024-12-12 11:44 | XMS_ITS | Clinical Summary ---
Author Organization [address] [facility] Address [address] [place] [address] Phone Care Team Providers Care Childhood Development Teacher Name Role Phone Poly Gudino Primary Care Provider Allergies No known active allergies Medications bisacodyL (DULCOLAX) 5 mg EC tablet Take 2 tabs by mouth right before beginning bowel prep. Follow instructions given by office for timing. 4 Active polyethylene glycol 3350 (MIRALAX ORAL) 3 Active ferrous sulfate 325 mg (65 mg iron) EC tablet Take 1 tablet (325 mg total) by mouth 2 (two) times a day. Active pantoprazole (PROTONIX) 20 mg EC tablet Take 2 Tabs by mouth daily for 180 days. 9 Active clotrimazole-be tamethasone (LOTRISONE) 1-0.05 % cream Apply to area sparingly twice a day for up to two weeks 0 Active cholecalciferol (VITAMIN D-3) 1,250 mcg (50,000 unit) capsule Take 1 Capsule by mouth once a week. 3 Active HYDROXYZINE HCL ORAL Take by mouth as needed. Active polyethylene glycol (GoLYTELY) 236-22.74-6.74 -5.86 gram solution 4 Active Active Problems Problem Noted Date Diagnosed [...] PCOS (polycystic ovarian syndrome) 11/08/2018 Vertigo 11/08/2018 Encounters Date Type Department Care Team Description 09/18/2024 2:15 PM EST Office Visit Bariatric Surgery - [address] [place] [address] Olamide Plasencia PA Class 3 severe obesity due to excess calories with serious comorbidity and body mass index (BMI) of 45.0 to 49.9 in adult (CMS/HCC V24, CMS/HCC V28) (Primary Dx); History of tobacco use from Last 3 Months Social History Tobacco Use Types Packs/Day Years Used Date Smoking Tobacco: Every Day Tobacco Cessation:Ready to Q uit: Not Asked; Counseling Given: Not Answered Alcohol Use Standard Drinks/Week Comments Not Currently 0 (1 standard drink = 0.6 oz pur e alcohol) Comments Unknown Sex and Gender Information Value Date Recorded Sex Assigned at Not on file Legal Sex Female 12:43 PM EST Gender Identity Not on file Sexual Orientation Not on file Obstetrics History Last Filed Vital Signs Vital Sign Reading Time Taken Comments Blood Pressure 134/90 09/18/2024 2:14 PM EST Pulse 80 09/18/2024 2:14 PM EST Temperature - - Respiratory Rate - - Oxygen Saturation - - Inhaled Oxygen Concentration - - Weight 134 kg (294 lb 9.6 oz) 09/18/2024 2:14 PM EST Height 170.2 cm (5' 7 ) 09/18/2024 2:14 PM EST Body Mass Index 46.14 09/18/2024 2:14 PM EST Plan of Treatment Health Maintenance Due Date Last Done Comments Cervical Cancer Screening: P ap Smear 2002 Breast Cancer Screening 12/29/2020 12/29/2018 HIV Screening 07/24/2022 Social Influencers of Health Screening 07/24/2022 Hepatitis B Vaccines (2 of 2 - CpG 2-dose series) 03/23/2024 02/24/2024 COVID-19 Vaccine (4 - 2023-2 5 season) 2024 06/03/2022, 12/19/2021, 12/14/2020 Hypertension/CHF/CAD Annual BMP Blood Test 08/05/2024 08/05/2023 Influenza Vaccine (Season Ended) 2025 06/03/2022, 06/04/2018, 05/26/2017 Depression Screening 10/31/2025 10/31/2024 Cholesterol Screening (Lipid Panel) 02/23/2029 02/24/2024, 08/05/2023 DTaP,Tdap,and Td Vaccines (3 - Td or Tdap) 08/20/2032 08/20/2022, 08/29/2011 Hepatitis C Screening Completed 11/25/2023 Pneumococcal Vaccine: Pediatrics (0 to 5 Years) and At-Risk Patients (6 to 64 Years) Completed 02/24/2024, 05/26/2017 HIB Vaccines Aged Out No longer eligi [...] patient's age to complete this topic Meningococcal B Vaccine Aged Out No l onger eligible based on patient's age to complete this topic RSV Immunization Patients Under 20 months Aged Out No longer eligible [...] Annual BMP Blood Test ABSTRACTED Historical Provider HEALTH MAINTENANCE Final Result * Lipid panel (08/05/2023) LDL/HDL Ratio 3 0 - 4 Triglycerides 98 0 - 150 mg/dL Cholesterol 174 0 - 200 mg/dL HDL 64 >=40 mg/dL LDL Cholesterol 91 0 - 100 mg/dL Blood Venous blood specimen / Unknown Historical Provider LAB BLOOD ORDERABLES [facility] l Result * DX MAMMO INCL CAD UNI (12/29/2018 [...] BI-RADS 0, incomplete, needs additional imaging evaluation. us Hawa Mckeon MD IMG BI PROCEDURES Final Res ult from Last 3 Months or Most Recently Relevant to Health Maintenance Insurance MEDICAID - [place] Care Teams Childhood Development Teacher Relationship Specialty Start Date End Date Poly Gudino PA [address] [place] [address] PCP - General 02/24/24
--- OUTSIDE RECORDS SUMMARY | 2024-12-12 11:44 | XMS_ITS | Encounter Summary ---
Author Organization [facility] Address [address] [place] [address] Care Team Providers Care Pedigree Researcher Name Role Phone Poly Gudino PA-C Primary Care Provider [phone] Reason for Referral * Hematology/Oncology (Routine) - Pending Review Specialty Diagnoses / Procedures Referred By Contcaleb t Referred To Contact Diagnoses Other iron deficiency anemia Poly Gudino PA-C [address] [place] [address] Phone: tel: fax: Oncologist, [facility] [address] [place] [address] Phone: tel: fax: Referral ID Status Reason Start Date Expiration Date Visits Requested Visits Authorized [id number] Pending Review Specialty Services Required 11/09/2024 11/09/2025 1 1 Comments Brittney Alamo is a 44 year old female with hx of anemia due to iron deficiency. Patient is not tolerating oral iron. Last iron infusion was last year. Patient needs to follow up with hematology for possible IV iron treatment. Encounter Details Date Type Department Care Team ([facility] st Contact Info) Description 11/09/2024 Results Follow-Up [facility] [address] [place] [phone] Poly Gudino PA-C [address] [place] [phone] Other iron deficiency anemia (Primary Dx); Low folate Social History Tobacco Use Types Packs/Day Years [...] Orientation Straight 08/20/2022 11 :37 AM PST documented as of this encounter Miscellaneous Notes * Result Encounter Note - Poly Gudino PA-C - 11/09/2024 8:44 AM EDT Brittney Alamo, Your lab results were reviewed. Iron level remains low. Referral to follow up with hematology was placed. Also folate was low (vitamin). Folate supplement was sent to your pharmacy to take daily. Follow up in two months. Have a good dayPoly documented in this encounter Plan of Treatment Upcoming Encounters Date Type Department Care Team (Late st Contact Info) Description 12/17/2024 2:00 PM EDT Office Visit [facility] [address] [place] [phone] Poly Gudino PA-C [address] [place] [address] 01/03/2025 8:40 AM EDT Office Visit [address] [phone] Fang Elias DO [address] [place] [address] Scheduled Referrals Name Type Priority Associated Diagnoses Orde r Schedule REFERRAL TO HEMATOLOGY Referral Routine Other iron deficiency anemia Ordered: 11/09/2024 documented as of this encounter Visit Diagnoses Diagnosis Other iron deficiency anemia- Primary Low folate documented in this encounter Additional Health Concerns Assessment Noted Time PHQ-9 Depression Total Score: 5 11/01/19 25 11:50 AM PDT documented as of this encounter Care Teams Pedigree Researcher Relationship Specialty Start Date End Date Poly Gudino PA-C [address] [place] [address] PCP - General Internal Medicine 05/27/23 documented as of this encounter
== END 2024-12-12 11:09 | disposition home or self-care (01) ==
LOC: HO.HOS 10:23
PROVIDERS: PCP Physician Assistant; Visit Provider Orthopaedic Surgery
DX: S83.241A Other tear of medial meniscus, current injury, right knee, initial encounter (principal)
CPT/HCPCS: 99024

== ENCOUNTER → 2024-12-12 10:22 | Outpatient (BNVA) | payer MEDICAID, SELFPAY | PROVIDERS: PCP Physician Assistant; Visit Provider Orthopaedic Surgery | DX: Z01.818 Encounter for other preprocedural examination (principal); S83.241A Other tear of medial meniscus, current injury, right knee, initial encounter | CPT/HCPCS: 99212 ==

== ENCOUNTER 2024-12-21 06:03 | Day surgery (SDC) | payer MEDICAID, SELFPAY ==
[2024-12-19 07:57] VITALS: BMI 45.4
[2024-12-21] VITALS (8 sets, daily range): BP systolic 112–146; BP diastolic 38–93; PULSE 55–78; RESP 12–18; TEMP 36.1–36.6; O2SAT 97–100; BMI 47.1
[2024-12-21] MEDS: Lactated Ringers 1,000 ML 100 ML IVCONT (06:31)
[2024-12-21 06:32] LABS: UPreg QC Valid YES
[2024-12-21 06:34] LABS: Urine Pregnancy NEGATIVE (NEGATIVE)
--- NOTE | 2024-12-21 07:15 | P.CONAN_ITS ---
Documented by User: Sara Kim NP 12/20/24 09:19 HPI - Anesthesia Eval Consult details Narrative: 44yo F for Right Knee Arthroscopy with partial medial and Lateral meniscectomy PMFSH Active Problems Active Problems: All Active Problems Tear of medial meniscus of right knee (Acute) Joint pain (Acute) Right knee pain (Acute) Past Medical History Medical History (Updated 12/21/24 @ 06:47 by Inocencia Lozano, RN) Occasional cigarette smoker Anemia Anxiety Thyroid nodule GERD (gastroesophageal reflux disease) Surgical History Surgical History (Updated 12/21/24 @ 06:46 by Inocencia Lozano RN) Hx of colonoscopy History of esophagogastroduodenoscopy (EGD) Hx of cholecystectomy Hx of appendectomy Hx of thyroidectomy Social History Social History Are you a primary medical care evaluation specialist to a significant other at home: No Do you presently have visiting nurse or other home services: No Alcohol intake: current Alcohol intake frequency: holidays/special occasions only Patient Tobacco Use Status: Current someday Tobacco user Tobacco use type: Cigarette Smoked in Last 30 Days: Yes Patient Interested in Nicotine Replacement: No Substance Use Frequency: Occasionally Have you been hit, kicked, punched, or otherwise hurt by someone within the past year? 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 Allergies Allergy/AdvReac Type Severity Reaction Status Date / Time No Known Allergies Allergy Verified 12/21/24 06:41 Active Medications: Current Medications Cefazolin Sodium/Dextrose (Ancef) 2 gm in 50 mls @ 100 mls/hr IV PREOP ONE Stop: 12/21/24 05:45 Home Medications ?Medication ?Instructions ?Recorded ?Confirmed ?Last Taken ?Type acetaminophen 500 mg tablet 500 mg PO Q6H PRN pain 05/24/24 12/21/24 Unknown History hydroxyzine HCl 10 mg tablet 10 - 20 mg PO TID PRN anxiety 05/24/24 12/21/24 Unknown History methocarbamol 750 mg tablet 750 mg PO Q6H PRN muscle spasm 05/24/24 12/21/24 Unknown History pantoprazole 40 mg tablet,delayed 40 mg PO BID 05/24/24 12/21/24 Unknown History release folic acid 1 mg tablet 1 mg PO DAILY 12/12/24 12/21/24 Unknown History Exam Height,Weight and Vital Signs: Height 5 ft 7 in Weight 131.542 kg Assessment and Plan Assessment Anesthesia Assessment: Chart Reviewed Documented by User: Lisette Edmondson, DO 12/21/24 07:26 PMFSH Past Medical History Medical History (Updated 12/21/24 @ 06:47 by Inocecnia Lozano RN) Occasional cigarette smoker Anemia Anxiety Thyroid nodule GERD (gastroesophageal reflux disease) Family History Family history of problems with anesthesia: No Surgical History Surgical History (Updated 12/21/24 @ 06:46 by Inocencia Lozano RN) Hx of colonoscopy History of esophagogastroduodenoscopy (EGD) Hx of cholecystectomy Hx of appendectomy Hx of thyroidectomy History of Problems with Anesthesia: No Social History Social History Are you a primary medical care evaluation specialist to a significant other at home: No Do you presently have visiting nurse or other home services: No Alcohol intake: current Alcohol intake frequency: holidays/special occasions only Patient Tobacco Use Status: Current someday Tobacco user Tobacco use type: Cigarette Smoked in Last 30 Days: Yes Patient Interested in Nicotine Replacement: No Substance Use Frequency: Occasionally Have you been hit, kicked, punched, or otherwise hurt by someone within the past year? 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 Allergies Allergy/AdvReac Type Severity Reaction Status Date / Time No Known Allergies Allergy Verified 12/21/24 06:41 Home Medications ?Medication ?Instructions ?Recorded ?Confirmed ?Last Taken ?Type acetaminophen 500 mg tablet 500 mg PO Q6H PRN pain 05/24/24 12/21/24 Unknown History hydroxyzine HCl 10 mg tablet 10 - 20 mg PO TID PRN anxiety 05/24/24 12/21/24 Unknown History methocarbamol 750 mg tablet 750 mg PO Q6H PRN muscle spasm 05/24/24 12/21/24 Unknown History pantoprazole 40 mg tablet,delayed 40 mg PO BID 05/24/24 12/21/24 Unknown History release folic acid 1 mg tablet 1 mg PO DAILY 12/12/24 12/21/24 Unknown History Exam Exam Date and Time: 12/21/24 0715 Height,Weight and Vital Signs: Height 5 ft 7 in Weight 131.542 kg Vital Signs Temperature 97.9 F 12/21/24 06:40 Pulse Rate 78 12/21/24 06:40 Respiratory Rate 18 12/21/24 06:40 Blood Pressure 144/74 H 12/21/24 06:40 Pulse Oximetry 100 12/21/24 06:40 Oxygen Delivery Method Room Air 12/21/24 06:40 Temperature 97.9 F 12/21/24 06:40 Pulse Rate 78 12/21/24 06:40 Respiratory Rate 18 12/21/24 06:40 Blood Pressure 144/74 H 12/21/24 06:40 Pulse Oximetry 100 12/21/24 06:40 Oxygen Delivery Method Room Air 12/21/24 06:40 Airway Mallampati Class: I TM Dist: >3cm Neck ROM: Full Loose/Missing/Broken Teeth: Yes (partials removed) Heart: S1S2 Lungs: CTAB Assessment and Plan Assessment Anesthesia Assessment: Anesthesia Plan Discussed and Chart Reviewed Final Anesthetic Review Family History of Problems with Anesthesia: No History of Problems with Anesthesia: No NPO: Yes ASA Class: III Final Preanesthetic Review: No Changes in Pt Med Stat, Meds/Allgs Chart Reviewed, Consent Obtained/Reviewed and Anes Risks/Benef Reviewed Patient Risk: Low Procedure Risk: Low Anesthetic Plan Anesthetic Plan: GA and Agree w/ Assess. and Plan Disposition: Standard PACU
[2024-12-21] MEDS: Acetaminophen 1,000 MG/100 ML PIGGYBACK 400 MG IV (07:30)
[2024-12-21] MEDS: ceFAZolin Sodium/Dextrose,Iso 2 GM/50 ML PIGGYBACK IV (07:30)
[2024-12-21] MEDS: fentaNYL citrate/PF 100 MCG/2 ML VIAL 50 MCG IVPUSH ×2 (08:42→08:51)
--- NOTE | 2024-12-21 08:52 | PM.OP ---
Brief Operative Note Date of Service: 12/21/24 Pre-op diagnosis: Right knee medial meniscus tear, right knee lateral meniscus tear, right knee degenerative joint disease Post-op diagnosis: same Procedure: Right knee arthroscopic partial medial meniscectomy, right knee arthroscopic partial lateral meniscectomy, right knee arthroscopic chondroplasty of the undersurface of the patella Implants: none Surgeon: Steven Knight MD Anesthesia: GLMA Was an Construction Management Assistant used for this Procedure?: No Estimated blood loss (mL): 10 Pathology: none sent Condition: stable Disposition: PACU
--- NOTE | 2024-12-21 08:53 | W.PM.OPN ---
Operative Note Operative Note Date of Service: 12/21/24 Narrative: After the patient was identified as Brittney Alamo and her right knee was initialed by myself they were brought to the operating room where general anesthesia was induced by the anesthesiologist in routine fashion. The patient was given 2 g of IV Ancef for infection prophylaxis. A formal time-out was completed. The patient's right lower extremity was prepped and draped in sterile fashion. Marcaine with epinephrine was injected into the planned incision sites as well as their right knee joint. A # 11 scalpel blade was used to make an anterolateral portal 1 cm proximal to the joint line and 1 cm lateral to the patellar tendon. Blunt trocar technique was used into the suprapatellar pouch with the knee in extension. Diagnostic arthroscopy showed multiple bands of thickened plica which would be excised at the end of the procedure. There were no loose bodies or abnormalities found in either the medial or lateral gutters. There were diffuse grades 2 and 3 degenerative changes of the undersurface of the patella as well as grades 2 and 3 degenerative changes of the trochlear groove. The patient's knee was flexed to 45 degrees and a valgus force was placed upon it. The medial compartment was entered. An anteromedial portal was made 1 cm proximal to the joint line and 1 cm medial to the patellar tendon. Probing of the medial meniscus showed a radial tear of the anterior horn. A partial medial meniscectomy was performed using the arthroscopic shaver. Following the partial meniscectomy the remainder of the meniscus tissue was stable. There were minimal degenerative changes of the medial femoral condyle and medial tibial plateau. The patient's knee was then placed into a neutral position. There was no injury to the anterior cruciate ligament. The patient's knee was then placed into the figure of 4 position and the lateral compartment was entered. There were minimal degenerative changes of the lateral femoral condyle and lateral tibial plateau. There was a radial tear of the anterior horn of the lateral meniscus. A partial lateral meniscectomy was performed using the arthroscopic shaver. The patient's knee was once again brought into extension and the suprapatellar pouch was entered. The arthroscopic shaver and the ArthroCare Wand were used to excise the thickened bands of plica. The undersurface of the patella was then made smooth using the arthroscopic shaver. The articular surface of the trochlear groove was already smooth so no chondroplasty was indicated. The knee joint was irrigated and then drained. All arthroscopic instruments were removed. The 2 portals were closed with 3-0 nylon interrupted suture. The knee joint was injected with Marcaine. Dry sterile dressing and Adriano bandages were placed over the patient's knee. The patient was awoken and extubated in the operating room. They were transferred to the recovery room in stable condition.
[2024-12-21] MEDS: cefTRIAXone sodium 1 GM VIAL IVPUSH (09:08)
== END 2024-12-21 10:25 | disposition home or self-care (01) ==
PROVIDERS: Nurse Practitioner; PCP Physician Assistant; Visit Provider Orthopaedic Surgery
PROC: (CPT 29870; principal; 2024-12-21 07:30)
DX: S83.241A Other tear of medial meniscus, current injury, right knee, initial encounter (principal); S83.281A Other tear of lateral meniscus, current injury, right knee, initial encounter; M25.561 Pain in right knee; M17.11 Unilateral primary osteoarthritis, right knee; M23.51 Chronic instability of knee, right knee; M67.51 Plica syndrome, right knee; X58.XXXA Exposure to other specified factors, initial encounter; Y93.9 Activity, unspecified; Y92.9 Unspecified place or not applicable; Y99.9 Unspecified external cause status; D64.9 Anemia, unspecified; E04.1 Nontoxic single thyroid nodule; F41.9 Anxiety disorder, unspecified; K21.9 Gastro-esophageal reflux disease without esophagitis; F17.210 Nicotine dependence, cigarettes, uncomplicated; Z98.890 Other specified postprocedural states
CPT/HCPCS: 29880; 29876; 81025; J0131; J0171; J0690; J0696; J1100; J1885; J2003; J2250; J2405; J2704; J2795; J3010

== ENCOUNTER → 2024-12-21 06:03 | Outpatient (BNV) | payer MEDICAID, SELFPAY | PROVIDERS: PCP Physician Assistant; Visit Provider Orthopaedic Surgery | DX: S83.241A Other tear of medial meniscus, current injury, right knee, initial encounter (principal); S83.281A Other tear of lateral meniscus, current injury, right knee, initial encounter | CPT/HCPCS: 29880 ==

== ENCOUNTER 2025-01-03 13:47 | Outpatient (AMB) | payer MEDICAID, SELFPAY ==
--- NOTE | 2025-01-03 13:52 | MHC.OFFVIS ---
Intake Visit Reasons: PO RT Knee 12/21/24 Intake Note: Brittney is a 44 year old female who presents today postoperatively after undergoing a RT Knee on 12/21/[address] Knight. Patient reports ongoing pain, with a current pain level of 9 out of 10. She has concerns of bruising on her leg. She is requesting a refill on her pain medication. Allergies No Known Allergies Allergy (Verified 01/03/25 13:59) Medication List - Last Reconciled 01/03/25 by Lindsey Munguia PA-C acetaminophen 500 mg PO Q6H PRN celecoxib (Celebrex) 200 mg PO DAILY PRN folic acid 1 mg PO DAILY hydroxyzine HCl 10 - 20 mg PO TID PRN methocarbamol 750 mg PO Q6H PRN oxycodone 5 mg PO Q6H PRN pantoprazole 40 mg PO BID HPI HPI PO RT Knee 12/21/24 DR: Details: 44-year-old female returns to the office today status post right knee arthroscopy with Dr. Knight on 12/21/2024. She continues to have discomfort in the right knee making it difficult to ambulate. She also has discomfort with bending the knee. She has been taking her pain medication intermittently. [facility] Medical History (Updated 12/21/24 @ 06:47 by Inocencia Lozano RN) Occasional cigarette smoker Anemia Anxiety Thyroid nodule GERD (gastroesophageal reflux disease) Surgical History Hx of colonoscopy History of esophagogastroduodenoscopy (EGD) Hx of cholecystectomy Hx of appendectomy Hx of thyroidectomy Social History Are you a primary caretaker to a significant other at home: No Do you presently have visiting nurse or other home services: No Alcohol intake: current Alcohol intake frequency: holidays/special occasions only Patient Tobacco Use Status: Current someday Tobacco user Tobacco use type: Cigarette Current occupational status: employed 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 No significant joint effusion. Range of motion is 0-80 degrees. Calf supple nontender neurovascularly intact. Results Reviewed Results Reviewed: Brief Operative Note Date of Service: 12/21/24 Pre-op diagnosis: Right knee medial meniscus tear, right knee lateral meniscus tear, right knee degenerative joint disease Post-op diagnosis: same Procedure: Right knee arthroscopic partial medial meniscectomy, right knee arthroscopic partial lateral meniscectomy, right knee arthroscopic chondroplasty of the undersurface of the patella Implants: none Surgeon: Steven Knight MD Assessment & Plan Assessment & Plan (1) Tear of medial meniscus of right knee: Code(s): S83.241A - Other tear of medial meniscus, current injury, right knee, initial encounter Category: Medical Plan: Sutures removed today Steri-Strips applied. I stressed the importance of working with physical therapy to work on range of motion and quad strength and gait training exercises. She was given a cane in the office today to help with her balance as she is struggling with putting full weight on that leg due to her discomfort. She will remain out of work until she sees us back in [address] Knight, sooner if needed. Orders: Orders PT Evaluation and Treatment Today S83.241A - Other tear of medial meniscus, current injury, right knee, initial encounter Coding Level of Care Code Global (62984) Diagnoses Tear of medial meniscus of right knee S83.241A
--- OUTSIDE RECORDS SUMMARY | 2025-01-03 13:58 | XMS_ITS | Clinical Summary ---
Author Organization [facility] Address [address] [place] [address] Care Team Providers Care Seat Builder Name Role Phone Poly Gudino PA-C Primary Care Provider [phone] Source Comments PLEASE NOTE, if this patient [...] Description 11/13/2024 3:00 PM EDT Office Visit [address] [id number] Colt Berkowitz MD Excessive or frequent menstruation (Primary Dx); Iron deficiency anemia due to chronic blood loss 11/09/2024 Results Follow-Up [address] [phone] Poly Gudino PA-C BLOOD COUNT COMPLETE AUTO&AUTO DIFRNTL WBC, IRON, TIBC, FERRITIN PANEL, VITAMIN B12 & FOLATE 10/31/2024 11:20 AM EDT Office Visit [address] [id number] Poly Gudino PA-C Other iron deficiency anemia [...] 20 (Prevnar) 02/24/20 24 PNEUMOCOCCAL POLYSACCHARIDE PPV23 (Pneumovax 23) 05/26/2017 TDAP 08/20/2022,08/29/2011 Family History Medical History [...] 11/13/2024 3:14 PM EDT Plan of Treatment Health Maintenance Due Date Last Done Comments HPV Screening 1981 Pap + HPV 1981 Pap Smear 01/14/2024 01/13/2021 Imm-Hepatitis B (2 of 2 - CpG 2-dose series) 03/23/2024 02/24/2024 [id number] ( season) 2024 06/03/2022, 06/03/2022, 12/19/2021, Additional history exists Imm-Influenza (#1) 2024 06/03/2022, 1 , 05/26/2017 Dental BW 10/14/2024 10/12/2023 Dental Examination 10/14/2024 10/12/2023 Dental Perio Charting 10/14/2024 10/12/2023 Dental Prophy 10/14/2024 10/12/2023 Relationship Safety Screening/Counseling 11/24/2024 11/25/2023, 08/20/2022 Cervical Cancer Screening 01/31/2025 Po stponed from 1981 (Patient postponement) Depression Monitoring 01/31/2025 10/31/2024 , 02/24/2024, 11/25/2023, Additional history exists Anxiety Screening 02/09/2025 02/10/2024 Annual Wellness (Adult): Indicated (All Coverage) 02/23/2025 02/24/2024, 08/20/2022 Breast Cancer Screening (Mammogram) [...] Date/Time Associated Diagnosis Comments REFERRAL SCANNED DOCUMENT 12/12/2024 3:00 AM EDT REFERRAL SCANNED DOCUMENT 11/29/2024 3:00 AM EDT VITAMIN B12 & FOLATE Routine 10/31/2024 12:08 PM EDT Other iron deficiency anemia IRON, TIBC, FERRITIN PANEL Routine 10/31/2024 12:08 PM EDT Other iron deficiency anemia BLOOD COUNT COMPLETE AUTO&AUTO DIFRNTL WBC Routine 10/31/2024 12:08 PM EDT Other iron deficiency anemia REFERRAL FOR MAMMOGRAM Routine 03/14/2024 3:00 AM [...] Health Maintenance Results * REFERRAL SCANNED DOCUMENT (12/12/2024 3:00 AM EDT) Only the most recent of2 resultswithin the time period is included. 12/12/2024 3:00 AM EDT Poly Gudino PA-C SCAN REFERRAL Final Result * (ABNORMAL) IRON, TIBC, FERRITIN PANEL (10/31/2024 12:08 PM EDT) [facility] IRON, TOTAL 29(L) 40 - 190 mcg/dL [facility] IRON BINDING CAPACITY 512(H) 250 - 450 mcg/dL (calc) [facility] % SATURATION 6(L) 16 - 45 % (calc) [facility] FERRITIN 4(L) 16 - 232 ng/mL [facility] Blood Blood / Unknown 10/31/2024 1 2:08 PM EDT 10/31/2024 12:09 PM EDT Narrative [employer] [facility] - 11/01/2024 5:56 AM EDT FASTING:NO us Poly Gudino PA-C LAB - BLOOD DRAW Final Resul t Performing Organization Address City/State/[facility] Co de Phone Number [employer] [address] [address], [facility] [address] [place] [address] * (ABNORMAL) VITAMIN B12 & FOLATE (10/31/2024 12:08 PM EDT) [facility] VITAMIN B12 550 200 - 1,100 pg/mL [facility] FOLATE, SERUM 5.0(L) 5.5 ng/mL [facility] Comment: ? Reference Range ? Low: ? <3.4 ? Borderline: ?3.4-5.4 ? Normal: ?>5.4 Blood Blood / Unknown 10/31/2024 1 2:08 PM EDT 10/31/2024 12:09 PM EDT Narrative [employer] - 11/01/2024 5:56 AM EDT FASTING:NO us Poly Gudino PA-C LAB - BLOOD DRAW Final Resul t [employer] [address] [address], [facility] [address] [place] [address] * (ABNORMAL) BLOOD COUNT COMPLETE AUTO&AUTO DIFRNTL WBC (10/31/2024 12:08 PM EDT) Pathologist [facility] WHITE BLOOD CELL COUNT 7.9 3.8 - 10.8 Thousand/ uL [facility] RED BLOOD CELL COUNT 4.81 3.80 - 5.10 Million/u L [facility] HEMOGLOBIN 11.0(L) 11.7 - 15.5 g/dL [facility] HEMATOCRIT 36.2 35.0 - 45.0 % [facility] MCV 75.3(L) 80.0 - 100.0 fL [facility] MCH 22.9(L) 27.0 - 33.0 pg [facility] MCHC 30.4(L) 32.0 - 36.0 g/dL [facility] Comment: For adults, a slight decrease in the calculated MCHC value (in the range of 30 to 32 g/dL) is most likely not clinically significant; however, it should be interpreted with caution in correlation with other red cell parameters and the patient's clinical condition. RDW 15.5(H) 11.0 - 15.0 % [facility] PLATELET COUNT 316 140 - 400 Thousand/ uL [facility] MPV 11.1 7.5 - 12.5 fL [facility] ABSOLUTE NEUTROPHILS 5,246 1,500 - 7,800 cells/uL [facility] ABSOLUTE LYMPHOCYTES 1,912 850 - 3,900 cells/uL [facility] ABSOLUTE MONOCYTES 632 200 - 950 cells/uL [facility] ABSOLUTE EOSINOPHILS 40 15 - 500 cells/uL [facility] ABSOLUTE BASOPHILS 71 0 - 200 cells/uL [facility] NEUTROPHILS PCT 66.4 % [facility] [employer] LYMPHOCYTES 24.2 % [facility] [employer] MONOCYTES 8.0 % [facility] EOSINOPHILS 0.5 % [facility] [employer] BASOPHILS 0.9 % [facility] Blood Blood / Unknown 10/31/2024 1 2:08 PM EDT 10/31/2024 12:09 PM EDT Narrative [employer] - 11/01/2024 5:56 AM EDT FASTING:NO us Poly Gudino PA-C LAB - BLOOD DRAW Edited Resu lt - Final [employer] [address] [address], [facility] [address] [place] [address] * REFERRAL FOR MAMMOGRAM SCREENING (03/14/2024 3:00 AM EDT) 03/14/2024 3:00 AM EDT us Poly Gudino PA-C IMG RFL MAMMO Final Result * HGA1C W/EAG (02/24/2024 10:26 AM EDT) HEMOGLOBIN A1C 5.3 <5.7 % of total Hgb [facility] Comment: For the purpose of screening for the presence of diabetes: <5.7% ? Consistent with the absence of diabetes 5.7-6.4% ?Consistent with increased risk for diabetes ?(prediabetes) > or =6.5% ??Consistent with diabetes This assay result is consistent with a decreased risk of diabetes. Currently, no consensus exists regarding use of hemoglobin A1c for diagnosis of diabetes in children. According to [place] Diabetes Association (ADA) guidelines, hemoglobin A1c <7.0% represents optimal control in non- diabetic patients. Different metrics may apply to specific patient populations. Standards of Medical Care in Diabetes(ADA). ?? EAG (MG/DL) 105 mg/dL [facility] [employer] EAG (MMOL/L) 5.8 mmol/L [facility] [employer] Blood Blood / Unknown 02/24/2024 1 0:26 AM EDT 02/24/2024 10:27 AM EDT Narrative [facility] - 02/25/2024 9:00 AM EDT FASTING:NO Poly Gudino PA-C LAB - BLOOD DRAW Edited Resu lt - Final Performing Organization Address [facility] Co de Phone Number [employer] [facility] [address] [address], [employer] [address] [address] * LIPIDS W RFLX TO DIRECT LDL (02/24/2024 10:26 AM EDT) [facility] Signature CHOLESTEROL, TOTAL 169 <200 mg/dL [facility] [facility] HDL CHOLESTEROL 57 > OR = 50 mg/dL [facility] [facility] TRIGLYCERIDES 86 <150 mg/dL [facility] [facility] LDL-CHOLESTEROL 94 99 mg/dL (calc) [facility] [facility] Comment: Reference range: <100 Desirable range <100 mg/dL for primary prevention; ?? <70 mg/dL for patients with CHD or diabetic patients with > or = 2 CHD risk factors. LDL-C is now calculated using the Choco-Edi calculation, which is a validated novel method providing better accuracy than the Friedewald equation in the estimation of LDL-C. Choco SS et al. HUNTER. 2013;310(19): 7863-7046 (http://education.Intralign/faq/QLI643) CHOL/HDLC RATIO 3.0 <5.0 (calc) [employer] [facility] NON-HDL CHOLESTEROL 112 <130 mg/dL (calc) [employer] [facility] Comment: For patients with diabetes plus 1 major ASCVD risk factor, treating to a non-HDL-C goal of <100 mg/dL (LDL-C of <70 mg/dL) is considered a therapeutic option. Blood Blood / Unknown 02/24/2024 1 0:26 AM EDT 02/24/2024 10:27 AM EDT Narrative [employer] [facility] - 02/25/2024 9:00 AM EDT FASTING:NO Poly ENGLAND-C LAB - BLOOD DRAW Final Resul t Performing Organization Address City/[facility]/ZIP Co de Phone Number [employer] [facility] [address] [address], [employer] [facility] [address] [place] [address] * HEPATITIS C AB W/RFLX HCV RNA, QT, RT PCR (11/25/2023 11:27 AM EDT) Pathologist [facility] HEPATITIS C ANTIBODY NON-REACT ANTHONY NON-REACT ANTHONY [employer] [facility] Comment: HCV antibody was non-reactive. There is no laboratory evidence of HCV infection. In most cases, no further action is required. However, if recent HCV exposure is suspected, a test for HCV RNA (test code 65731) is suggested. For additional information please refer to http://education.Credit Karma/faq/OHS81v8 (This link is being provided for informational/ educational purposes only.) Blood Blood / Unknown 11/25/2023 1 1:27 AM EDT 11/25/2023 11:28 AM EDT Narrative [facility] - 11/28/2023 4:55 PM EDT FASTING:YES Poly Gudino PA-C LAB - BLOOD DRAW Edited Resu lt - Final [employer] [address] [address], [employer] [address] [address] * HIV 1/2 AG & AB W/RFLX (4TH GEN) (11/25/2023 11:27 AM EDT) Pathologist [facility] HIV AG/AB, 4TH GEN NON-REAC TIVE NON-REAC TIVE [employer] [facility] Comment: HIV-1 antigen and HIV-1/HIV-2 antibodies were [...] ?? For additional information please refer to http://education.Credit Karma/faq/YYH397 (This link is being provided for informational/ educational purposes only.) The performance of this assay has not been clinically validated in patients less than 2 years old. Blood Blood / Unknown 11/25/2023 1 1:27 AM EDT 11/25/2023 11:28 AM EDT Narrative [facility] [employer] - 11/28/2023 4:55 PM EDT FASTING:YES us Poly Gudino PA-C LAB - BLOOD DRAW Final Resul t [employer] [place] [employer] [address] [place] [address], [employer] [address] [address] from Last 3 Months or Most Recently Relevant to Health Maintenance Insurance [place] D[place] [facility] [id number] [employer] Care Teams Seat Builder Relationship Specialty Start Date End Date Poly Gudino PA-C [address] [place] [address] PCP - General Internal Medicine 05/27/23
== END 2025-01-03 14:59 | disposition home or self-care (01) ==
LOC: HO.HOS 13:48
PROVIDERS: PCP Physician Assistant; Visit Provider Physician Assistant
DX: S83.241A Other tear of medial meniscus, current injury, right knee, initial encounter (principal)
CPT/HCPCS: 99024

== ENCOUNTER → 2025-01-03 13:47 | Outpatient (BNVA) | payer MEDICAID, SELFPAY | PROVIDERS: PCP Physician Assistant; Visit Provider Physician Assistant | DX: S83.241D Other tear of medial meniscus, current injury, right knee, subsequent encounter (principal); X58.XXXD Exposure to other specified factors, subsequent encounter; Z98.890 Other specified postprocedural states | CPT/HCPCS: 99212 ==

== ENCOUNTER 2025-01-30 13:52 | Outpatient (AMB) | payer MEDICAID, SELFPAY ==
--- NOTE | 2025-01-30 13:55 | MHC.OFFVIS ---
Vital Signs 01/30/25 14:00 Height 5 ft 7 in Weight 300 lb BMI 47.0 Intake Visit Reasons: PO RT Knee 12/21/24 Intake Note: Brittney is a 44 year old female who presents today postoperatively after undergoing a right knee arthroscopy on 12/21/24. At her first post-operative visit she was referred to physical therapy. Patient reports she is walking better but has a real hard time at night. She would like a refill of the ibuprofen and oxycodone. Patient states she will be starting physical therapy the first week of February. She has not yet returned to work. Allergies No Known Allergies Allergy (Verified 01/30/25 13:59) Medication List - Last Reconciled 01/30/25 by Steven Knight MD acetaminophen 500 mg PO Q6H PRN celecoxib (Celebrex) 200 mg PO DAILY PRN folic acid 1 mg PO DAILY hydroxyzine HCl 10 - 20 mg PO TID PRN ibuprofen 800 mg PO Q8H PRN 30 days oxycodone 5 mg PO Q12H PRN 7 days pantoprazole 40 mg PO BID PFSH Medical History (Updated 12/21/24 @ 06:47 by Inocencia Lozano RN) Occasional cigarette smoker Anemia Anxiety Thyroid nodule GERD (gastroesophageal reflux disease) Surgical History Hx of colonoscopy History of esophagogastroduodenoscopy (EGD) Hx of cholecystectomy Hx of appendectomy Hx of thyroidectomy Social History Are you a primary customer care agent to a significant other at home: No Do you presently have visiting nurse or other home services: No Alcohol intake: current Alcohol intake frequency: holidays/special occasions only Patient Tobacco Use Status: Current someday Tobacco user Tobacco use type: Cigarette Current occupational status: employed 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 Alamo continues to do fairly well after undergoing right knee arthroscopic surgery on 12/21/2024. She will go to physical therapy as scheduled next month. She will be cleared to return to work once her discomfort and strength have improved. She will contact me prior to her follow-up appointment in 2-3 months should any questions or concerns arise. Feel free to call me at any time should questions regarding her orthopedic management arise. Medications: Changed From oxycodone Partial Fill upon patient request. 5 mg PO Q12H 7 days PRN 14 tabs 0RF pain To oxycodone Partial Fill upon patient request. 5 mg PO Q24H PRN 10 tabs 0RF pain Refilled ibuprofen 800 mg PO Q8H PRN 90 tabs 3RF pain 30 days S52.209D - Unspecified fracture of shaft of unspecified ulna, subsequent encounter for closed fracture with routine healing Coding Level of Care Code Global (86554) Diagnoses Right knee pain M25.561
[2025-01-30 14:00] VITALS: BMI 47.0
--- OUTSIDE RECORDS SUMMARY | 2025-01-30 15:55 | XMS_ITS | Encounter Summary ---
Author Organization [facility] Address [address] [place] [address] Care Team Providers Care Medical Field Representative Name Role Phone Juanita Altamirano MD Primary Care Provider Un available Axel Miller MD Primary Care Provider Unavai Juanita Craven MD Primary Care Provider Un available Kayla Emerson NP Primary Care Provider Unava ilable Poly Gudino Primary Care Provider Unava ilable Reason for Visit * Reason Onset Date Comments Medical Records 10/26/2018 Encounter Details Date Type Department Care Team Description 10/26/2018 Telephone OBGYN - [facility] [address] [place] [address] Yolie Jacobs CNM [address] [place] [address] Medical Records Social History Tobacco Use Types Packs/Day Years Used Date Smoking Tobacco: Every Day Cigarettes 0.5 20 Smokeless Tobacco: Never Alcohol Use Standard Drinks/Week Comments Yes 0 (1 standard drink = 0.6 oz pur e alcohol) rare Sex Assigned at Date Recorded Female 04/07/2022 11:45 AM EDT Job Start Date Occupation Industry Not on file Not on file Not on file documented as of this encounter Miscellaneous Notes * Telephone Encounter - Yolie Greenwood - 11/16/2018 11:45 AM EDT 11/16/18 Lmom for pt to call and schedule appt, records rec'd. * Telephone Encounter - Yoliedewey Greenwood - 10/26/2018 12:40 PM EDT Pt referred by PCP. Pt stopped by the office. KAYLEE signed for [facility]. Copied and sent to [employer]. Pt aware appt cannot be scheduled until records are rec'd. Pt prefers female provider for this annual. documented in this encounter Plan of Treatment Not on file documented as of this encounter Visit Diagnoses Not on filedocumented in this encounter Care Teams Medical Field Representative Relationship Specialty Start Date End Date Juanita Altamirano MD PCP - General Internal Medicine 10/25/18 04/28/21 Axel Miller MD PCP - General Internal Medicine 04/29/21 06/29/21 Juanita Altamirano MD PCP - General Internal Medicine 06/30/21 06/30/23 Kayla Emerson NP PCP - General Nurse Practitioner Family 07/01/23 02/23/24 Poly Gudino PA PCP - General Medical Physician Automobile Drivers 02/24/24 documented as of this encounter
== END 2025-01-30 14:18 | disposition home or self-care (01) ==
LOC: HO.HOS 13:53
PROVIDERS: PCP Physician Assistant; Visit Provider Orthopaedic Surgery
DX: M25.561 Pain in right knee (principal)
CPT/HCPCS: 99024

== ENCOUNTER → 2025-01-30 13:52 | Outpatient (BNVA) | payer MEDICAID, SELFPAY | PROVIDERS: PCP Physician Assistant; Visit Provider Orthopaedic Surgery | DX: M25.561 Pain in right knee (principal); Z98.890 Other specified postprocedural states | CPT/HCPCS: 99212 ==

== ENCOUNTER 2025-03-08 13:00 | Outpatient (RCR) | payer MEDICAID, SELFPAY ==
--- NOTE | 2025-03-08 13:44 | MHC.PT.EP ---
[facility] [place] Office [place] Office [place] Office [address] Wilda Henderson [address] [phone] F: [phone] F: [phone] F: [phone] F: [phone] Physical Therapy Plan of Care Date of Evaluation: 03/08/25 Date of Surgery: 12/21/2024 Diagnosis: s/p R knee medial meniscus 12/21/2024 Assessment: Patient is a 44 year old female presenting to PT s/p R menisectomy on 12/21/2024. She presents today with impairments in pain, ROM, hip strength, knee strength, gait mechanics. 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 Clinical presentation today is most consistent with signs and sx associated with s/p R menisectomy on 12/21/2024 and pt will benefit from skilled PT 2 week x 4 weeks to address the following problems and impairments noted upon evaluation: pain, ROM, hip strength, knee strength, gait mechanics. These problems limit the patient with the following functional activities: ambulating, stair negotiation, ADLs, work. The prescribed treatment plan of care is medically necessary. Co-morbidities of anxiety were identified and taken into considerations of plan of care. Pt was educated on HEP, role of PT, prognosis, POC. Frequency and Duration: The patient will be seen 2 x week x 4 weeks Short Term Goals: Pt will demonstrate R knee flexion to 115 and ext to 0 in 2 weeks. Pt will demonstrate improved R knee MMT strength by 1/3 grade in 2 weeks. Pt will demonstrate hip MMT strength at least 4/5 in 2 weeks. Flow Machine Operator Goals: Pt will demonstrate improved LEFI score by 9 points in 4 weeks for improved functional mobility. Pt will demonstrate ability to ambulate with normal gait in 4 weeks for return to PLOF. Pt will demonstrate ability to negotiate stairs with min to no pain in 4 weeks for return to PLOF. Treatment Plan: Modalities to reduce pain, spasms and effusion. Manual therapy to restore motion and function. Therapeutic exercise to improve strength and flexibility. Neuromuscular re-education for posture and balance. Therapeutic activities to return to functional activities of daily living. Electronically signed by: Rehana Jernigan, PT, DPT, ATC Please sign and return to therapist. Thank you for your referral.
--- NOTE | 2025-04-05 14:08 | MHC.PT.DC ---
[facility] [place] Office [place] Office [place] Office [address] Wilda Henderson [address] [phone] F: [phone] F: [phone] F: [phone] F: [phone] Physical Therapy Discharge Report Diagnosis: s/p R knee medial meniscus 12/21/2024 Date of Surgery: 12/21/2024 Date of Evaluation: 03/08/25 Date of Discharge: 04/05/25 Treatments to Date: 1 Cancellations to Date: 1 No Shows to Date: 3 Discharge Status: Visit Non-compliance Discharge Summary: Pt has failed to comply with [facility] attendance policy and no showed 3 appointments since start of care. Therefore to be d/c. Electronically signed by: Rehnaa Jernigan, PT, DPT, ATC Please sign and return to therapist. Thank you for your referral.
== END 2025-04-05 14:08 | disposition home or self-care (01) ==
LOC: HO.PTCHIC 13:00
PROVIDERS: PCP Physician Assistant; Visit Provider Physician Assistant
DX: S83.241D Other tear of medial meniscus, current injury, right knee, subsequent encounter (principal); Z98.890 Other specified postprocedural states
CPT/HCPCS: 97110; 97161

== ENCOUNTER 2025-03-13 14:28 | Outpatient (AMB) | payer MEDICAID, SELFPAY ==
[2025-03-13 14:32] VITALS: BMI 48.2
--- NOTE | 2025-03-13 14:32 | MHC.OFFVIS ---
Vital Signs 03/13/25 14:32 Height 5 ft 7 in Weight 308 lb BMI 48.2 Intake Visit Reasons: OV- RT Knee 12/21/24 Intake Note: Brittney is a 44 year old female who presents today postoperatively after undergoing a right knee arthroscopy on 12/21/24. At her last post-operative visit, 01/30/25, she was advised to continue going to physical therapy and to return to work once her discomfort and strength had improved. Oxycodone was changed to once a day and Ibuprofen was refilled. At today's visit she states that her main concern is missing her physical therapy appointments due to work. She added that due to working 30 to 40 hours at both jobs her knee continues to ache. She would like to continue formal physical therapy. She denies any fevers or chills. Allergies No Known Allergies Allergy (Verified 03/13/25 14:38) Medication List - Last Reconciled 03/13/25 by Steven Knight MD acetaminophen 500 mg PO Q6H PRN folic acid 1 mg PO DAILY hydroxyzine HCl 10 - 20 mg PO TID PRN ibuprofen 800 mg PO Q8H PRN 30 days oxycodone 5 mg PO Q24H PRN pantoprazole 40 mg PO BID PFSH Medical History (Updated 12/21/24 @ 06:47 by Inocencia Lozano RN) Occasional cigarette smoker Anemia Anxiety Thyroid nodule GERD (gastroesophageal reflux disease) Surgical History Hx of colonoscopy History of esophagogastroduodenoscopy (EGD) Hx of cholecystectomy Hx of appendectomy Hx of thyroidectomy Social History Are you a primary care team coordinator scheduler to a significant other at home: No Do you presently have visiting nurse or other home services: No Alcohol intake: current Alcohol intake frequency: holidays/special occasions only Patient Tobacco Use Status: Current someday Tobacco user Tobacco use type: Cigarette Current occupational status: employed 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 Alamo continues to do fairly well after undergoing right knee arthroscopic surgery on 12/21/2024. She can continue going to formal physical therapy as her schedule allows her to. She will then transition to a home exercise program. She will contact me prior to her follow-up appointment in 2 months should any questions or concerns arise. Coding Level of Care Code Global (13660) Diagnoses Right knee pain M25.561
--- OUTSIDE RECORDS SUMMARY | 2025-03-13 15:11 | XMS_ITS | Clinical Summary ---
Author Organization [employer] [facility] Address [address] [place] [address] Care Team Providers Care Straight Knife Cutter Machine Name Role Phone Unavailable Primary Care Provider Unavailabl e Encounters Date Type Department Care Team Description 03/05/2025 Population Health Risk Score [facility] (C[facility]) Department [address] [facility] [address] [place] [address] Provider, Population Health Generic from Last 3 Months Social History Tobacco Use Types Packs/Day Years Used Date Smoking Tobacco: Never Assessed Comments Unknown Sex and Gender Information Value Date Recorded Sex Assigned at Not on file Legal Sex Female 9:32 PM EDT Gender Identity Not on file Sexual Orientation Not on file Plan of Treatment Health Maintenance Due Date Last Done Comments Depression Screening 1981 HIV Screening 1981 SDOH Screening 1981 Disability Screening 1981 Alcohol/Substance Use Screening 1993 Tobacco Screening 1993 Family Planning (PISQ) 1996 HPV Vaccines (1 - 3-dose series) 1996 Hepatitis C Screening 11/05/1999 DTaP/Tdap/Td Vaccines (1 - Tdap) 2000 Hepatitis B Vaccines (1 of 3 - 19+ 3-dose series) 2000 Pap Smear 2002 Cervical Cancer Screening 11/05/2011 HPV/Cotest 11/05/2011 Mammogram 2021 COVID-19 Vaccine ( - 2023-2 5 season) 2024 Influenza Vaccine (#1) 2025 Zoster Vaccines (1 of 2) 11/05/2031 RSV Patients and Pa tients Aged 60 years or older (1 - 1-dose 75+ series) 2056 HIB Vaccines Aged Out No longer eligi [...] patient's age to complete this topic Meningococcal Vaccine Aged Out No eliud john eligible based on patient's age to complete this topic Pneumococcal Vaccine: Pediat rics (0 to 5 Years) and At-Risk Patients (6 to 49) Years Aged Out No longer eligible b ased on patient's age to complete this topic RSV under 20 months Aged Out No longe r eligible based on patient's age to complete this topic Rotavirus Vaccines Aged Out No longer eligible based on patient's age to complete this topic
--- OUTSIDE RECORDS SUMMARY | 2025-03-13 15:11 | XMS_ITS | Clinical Summary ---
Author Organization [facility] Address [address] [place] [address] Care Team Providers Care Dean Of Instruction Name Role Phone Poly Gudino PA-C Primary [...] 81 03/22/2024 4:00 PM EDT Temperature 36.6 C (97.8 F) 03/22/2024 4:00 PM EDT Respiratory Rate 18 03/22/2024 4:00 PM EDT [...] 2-dose series) 03/23/2024 02/24/2024 Influenza Vaccine (#1) 2025 , 06/04/2018, 05/26/2017 DTap / Tdap / Td (3 - Td or Tdap) 08/20/2032 08/20/2022, 08/29/2011 Hepatitis C Screening Completed 11/25/2023 Pneumococcal Vaccine Completed 02/24/2024, 05/26/2017 RSV Ped < 20 months Aged Out No longe r eligible based on patient's age to complete this topic Care Teams Dean Of Instruction Relationship Specialty Start Date End Date Poly Gudino PA-C [address] [place] [address] PCP - General Physician Exhibit Artist 02/02/24
--- OUTSIDE RECORDS SUMMARY | 2025-03-13 15:11 | XMS_ITS | Encounter Summary ---
Author Organization [facility] Address [address] [place] [address] Care Team Providers Care Christmas Bell Ringer Name Role Phone Juanita Altamirano MD Primary [...] Description 10/26/2018 Telephone OBGYN - [facility] [address] [place] [address] Yolie Jacobs CNM [address] [place] [address] Medical Records Social History Tobacco Use Types [...] stopped by the office. KAYLEE signed for [facility]. Copied and sent to [facility]. Pt aware appt cannot be scheduled until records are rec'd. Pt prefers female provider for this annual. documented in this encounter Plan of Treatment Not on file documented as of this encounter Visit Diagnoses Not on filedocumented in this encounter Care Teams Christmas Bell Ringer Relationship Specialty Start Date End Date Juanita Altamirano MD PCP - General Internal Medicine 10/25/18 04/28/21 Axel Miller MD PCP - General Internal Medicine 04/29/21 06/29/21 Juanita Altamirano MD PCP - General Internal Medicine 06/30/21 06/30/23 Kayla Emerson NP PCP - General Nurse Practitioner Family 07/01/23 02/23/24 Poly Gudino PA PCP - General Medical Physician Tablet Coater 02/24/24 documented as of this encounter
--- OUTSIDE RECORDS SUMMARY | 2025-03-13 15:11 | XMS_ITS | Clinical Summary ---
Author Organization [facility] Address [address] [place] [address] Care Team Providers Care Tone Regulator Name Role Phone Poly Gudino PA-C Primary Care Provider + [phone] Source Comments PLEASE NOTE, if this patient is a minor, it may be UNLAWFUL to discuss sensitive information that is contained in these records (such as FAMILY PLANNING, MENTAL HEALTH or SUBSTANCE ABUSE) with the minor patient's parent or other person without the patient's specific authorization.[facility] Allergies No known active allergies Medications ferrous sulfate 325 mg (65 mg iron) tabletIndicat ions:Other iron deficiency anemia Take 1 Tablet by mouth 2 (two) times daily with a meal 180 Tablet 1 01/19/20 24 Active hydrOXYzine HCL (ATARAX) 10 mg tabletIndicat ions:Depressi on with anxiety Take 1 Tablet by mouth 3 (three) times daily as needed for anxiety 1-2 tablets TID as needed 90 Tablet 1 02/24/20 24 Active acetaminophen (TYLENOL) 500 mg tabletIndicat ions:Right leg pain Take 1 Tablet by mouth every 6 (six) hours as needed for pain 30 Tablet 02/24/20 24 Active pantoprazole (PROTONIX) 40 mg EC tabletIndicat ions:Other iron deficiency anemia,Histor y of GI bleed TAKE 1 TABLET BY MOUTH TWICE A DAY 30 MINS BEFORE FOOD 90 Tablet 1 05/23/20 24 Active tranexamic acid (LYSTEDA) 650 mg tablet Take 2 Tablets by mouth 3 (three) times daily for 90 days During menses only. 90 Tablet 2 11/14/19 25 Active mefenamic acid (PONSTEL) 250 mg capsule Take 1 Capsule by mouth every 8 (eight) hours as needed for pain or other reason (during menses only. Take with acetaminophen but do not use ibuprofen nor naproxen) 60 Capsule 3 11/14/19 25 Active norethindrone acetate (AYGESTIN) 5 mg tablet Take 1 Tablet by mouth once daily. 30 Tablet 2 01/26/20 25 Active folic acid (FOLVITE) 1 mg tabletIndicat ions:Low folate TAKE 1 TABLET BY MOUTH EVERY DAY 90 Tablet 02/13/20 25 Active folic acid (FOLVITE) 1 mg tabletIndicat ions:Low folate Take 1 Tablet by mouth once daily 90 Tablet 11/10/19 25 025 Discontinued Active Problems Problem Noted Date Diagnosed [...] Encounters Date Type Department Care Team Description 02/20/2025 2:40 PM EDT Office Visit [facility] [address] [place] [address] Poly Gudino PA-C 01/24/2025 8:00 AM EDT Telemedicine Visit [facility] [address] [place] [address] Fang Elias DO from Last 3 Months Immunizations Immunization Administration Dates Next Due Flu, Multi Dose 0.5 ML 06/03/2022 Hep B,adult,adjuvanted (HEPLISAV) 02/24/2024 INFLUENZA, SEASONAL, INJECTABLE 06/04/2018,05/26 MODERNA COVID-19 VACCINE BIV ALENT, BLUE CAP, 6M+ 06/03/2022 Moderna COVID-19 Vaccine, re d cap blue label, 12+ Primary Series 06/03/2022,12/19/2021,12/14/2020 PNEUMOCOCCAL CONJUGATE PCV 20 (Prevnar 20) 02/23 PNEUMOCOCCAL POLYSACCHARIDE PPV23 (Pneumovax 23) 05/26/2017 TDAP [...] Sign Reading Time Taken Comments Blood Pressure 118/88 02/20/2025 2:45 PM EDT Pulse 107 02/20/2025 2:45 PM EDT Temperature 36.9 C (98.4 F) 10/31/2024 11:50 AM EDT Respiratory Rate 16 02/20/2025 2:45 PM EDT Oxygen Saturation 99% 02/20/2025 2:45 PM EDT Inhaled Oxygen Concentration - - Weight 137.8 kg (303 lb 12.8 oz) 02/20/2025 2:45 PM EDT Height 167.6 cm (5' 6 ) 02/20/2025 2:45 PM EDT Body Mass Index 49.03 02/20/2025 2:45 PM EDT Plan of Treatment Health Maintenance Due Date Last Done Comments HPV Screening 1980 Pap + HPV 1980 Cervical Cancer Screening 01/14/2024 Pap Smear 01/14/2024 01/13/2021 Imm-Hepatitis B (2 of 2 - Cp G 2-dose series) 03/23/2024 02/24/2024 [id number] () 04/15/2024 06/03/2022, 06/03/2022, 12/19/2021, Additional history exists Dental BW 10/14/2024 10/12/2023 Dental Examination 10/14/2024 10/12/2023 Dental Perio Charting 10/14/2024 10/12/2023 Dental Prophy 10/14/2024 10/12/2023 Relationship Safety Screening/Counseling 11/24/2024 11/25/2023, 08/20/2022 Anxiety Screening 02/09/2025 02/10/2024 Annual Wellness (Adult): Indicated (All Coverage) 02/23/2025 02/24/2024, 08/20/2022 Breast Cancer Screening (Mammogram) 03/14/2025 03/14/2024 Imm-Influenza (#1) 2025 06/03/2022, 1 , 05/26/2017 Depression Monitoring 05/23/2025 02/20/2025 , 10/31/2024, 02/24/2024, Additional history exists Hypertension Screening (#1) 02/20/2026 Tobacco Cessation Counseling (#1) 02/20/2026 023 Diabetes Screening 02/23/2027 02/24/2024, 0 02/24/2024, 08/05/2023, [...] Procedure Name Priority Date/Time Associated Diagnosis Comments THYROID AUTOANTIBODIES (TBG, TPO) Routine 02/20/2025 3:10 PM EDT Abnormal uterine bleeding (AUB) BLOOD COUNT COMPLETE AUTOMATED Routine 02/20/2025 3:10 PM EDT Abnormal uterine bleeding (AUB) TSH W/RFLX FREE T4 Routine 02/20/2025 3: 10 PM EDT Abnormal uterine bleeding (AUB) ASSAY OF PROLACTIN Routine 02/20/2025 3: 10 PM EDT Abnormal uterine bleeding (AUB) REFERRAL SCANNED DOCUMENT 01/30/2025 3:00 AM EDT REFERRAL TO ORTHOPEDICS Routine 12/22/19 3:00 AM EDT Right leg pain REFERRAL SCANNED DOCUMENT 12/12/2024 3:00 AM EDT REFERRAL FOR MAMMOGRAM Routine 3:00 AM EDT [...] Recently Relevant to Health Maintenance Results * TSH W/RFLX FREE T4 Routine (02/20/2025 3:10 PM EDT) TSH W/REFLEX TO FT4 3.33 0.40 - 4.50 mIU/L [employer] [facility] Comment: Reference Range > or = 20 Years 0.40-4.50 Ranges First trimester 0.26-2.66 Second trimester 0.55-2.73 Third trimester 0.43-2.91 Blood Blood / Unknown 02/20/2025 3 :10 PM EDT 02/20/2025 3:10 PM EDT us Fang Formisano DO LAB - BLOOD DRAW Edited Result - Final Performing Organization Address City/[facility]/ZIP Co de Phone Number [facility] [address] [address], [employer] [address] [address] * THYROID AUTOANTIBODIES (TBG, TPO) Routine (02/20/2025 3:10 PM EDT) Pathologist [facility] THYROGLOBULIN ANTIBODIES <1 < or = 1 IU/mL [employer] [facility] THYROID PEROXIDASE ANTIBODIES <1 <9 IU/mL [employer] [facility] Blood Blood / Unknown 02/20/2025 3 :10 PM EDT 02/20/2025 3:10 PM EDT us Fang Formisano DO LAB - BLOOD DRAW Final Result Performing Organization Address City/[facility] Co de Phone Number [facility] [address] [address], [employer] [address] [address] * (ABNORMAL) BLOOD COUNT COMPLETE AUTOMATED Routine (02/20/2025 3:10 PM EDT) Pathologist [facility] WHITE BLOOD CELL COUNT 8.4 3.8 - 10.8 Thousand/ uL [employer] [facility] RED BLOOD CELL COUNT 5.20(H) 3.80 - 5.10 Million/u L [employer] [facility] HEMOGLOBIN 11.2(L) 11.7 - 15.5 g/dL [employer] [facility] HEMATOCRIT 38.9 35.0 - 45.0 % [employer] [place] [employer] MCV 74.8(L) 80.0 - 100.0 fL [facility] [place] [employer] MCH 21.5(L) 27.0 - 33.0 pg [facility] MCHC 28.8(L) 32.0 - 36.0 g/dL [employer] [facility] Comment: For adults, a slight decrease in the calculated MCHC value (in the range of 30 to 32 g/dL) is most likely not clinically significant; however, it should be interpreted with caution in correlation with other red cell parameters and the patient's clinical condition. RDW 17.0(H) 11.0 - 15.0 % [employer] PLATELET COUNT 270 140 - 400 Thousand/ uL [employer] MPV 11.0 7.5 - 12.5 fL [employer] Blood Blood / Unknown 02/20/2025 3 :10 PM EDT 02/20/2025 3:10 PM EDT Fang Formisano DO LAB - BLOOD DRAW Edited Result - Final Performing Organization Address [facility]/ZIP Co de Phone Number [employer] [address] [address], [employer] [address] [address] * ASSAY OF PROLACTIN Routine (02/20/2025 3:10 PM EDT) Pathologist [facility] PROLACTIN 9.3 2.0 - 30.00 ng/mL [employer] [facility] Comment: Reference Range Females Non- 3.0-30.0 10.0-209.0 Postmenopausal 2.0-20.0 Blood Blood / Unknown 02/20/2025 3 :10 PM EDT 02/20/2025 3:10 PM EDT Fang Formisano DO LAB - BLOOD DRAW Edited Result - Final Performing Organization Address City/[facility]/ZIP Co de Phone Number [employer] [address] [address], [employer] [address] [address] * REFERRAL SCANNED DOCUMENT (01/30/2025 3:00 AM EDT) Only the most recent of2 resultswithin the time period is included. 01/30/2025 3:00 AM EDT Poly Gudino PA-C SCAN REFERRAL Final Result * REFERRAL TO ORTHOPEDICS (12/21/2024 3:00 AM EDT) 12/21/2024 3:00 AM EDT us Poly Gudino PA-C REFERRAL Final Result * REFERRAL FOR MAMMOGRAM SCREENING (03/14/2024 3:00 AM EDT) 03/14/2024 3:00 AM EDT us Poly Gudino PA-C IMG RFL MAMMO Final Result * HGA1C W/EAG (02/24/2024 10:26 AM EDT) HEMOGLOBIN A1C 5.3 <5.7 % of total Hgb [employer] Comment: For the purpose of screening for the presence of diabetes: <5.7% Consistent with the absence of diabetes 5.7-6.4% Consistent with increased risk for diabetes (prediabetes) > or =6.5% Consistent with diabetes This assay result is consistent with a decreased risk of diabetes. Currently, no consensus exists regarding use of hemoglobin A1c for diagnosis of diabetes in children. According to [place] Diabetes Association (ADA) guidelines, hemoglobin A1c <7.0% represents optimal control in non- diabetic patients. Different metrics may apply to specific patient populations. Standards of Medical Care in Diabetes(ADA). EAG (MG/DL) 105 mg/dL [facility] EAG (MMOL/L) 5.8 mmol/L [facility] Blood Blood / Unknown 02/24/2024 1 0:26 AM EDT 02/24/2024 10:27 AM EDT Narrative [facility] [employer] - 02/25/2024 9:00 AM EDT FASTING:NO us Poly Gudino PA-C LAB - BLOOD DRAW Edited Resu lt - Final [facility] [address] [place] [phone], [employer] [address] [place] [phone] * LIPIDS W RFLX TO DIRECT LDL (02/24/2024 10:26 AM EDT) CHOLESTEROL, TOTAL 169 <200 mg/dL [facility] HDL CHOLESTEROL 57 > OR = 50 mg/dL [facility] TRIGLYCERIDES 86 <150 mg/dL [employer] [facility] LDL-CHOLESTEROL 94 99 mg/dL (calc) [facility] Comment: Reference range: <100 Desirable range <100 mg/dL for primary prevention; <70 mg/dL for patients with CHD or diabetic patients with > or = 2 CHD risk factors. LDL-C is now calculated using the Amrit calculation, which is a validated novel method providing better accuracy than the Friedewald equation in the estimation of LDL-C. Choco SS et al. HUNTER. 2013;310(19): 3692-6106 (http://education.[employer]/faq/MCQ026) CHOL/HDLC RATIO 3.0 <5.0 (calc) [facility] NON-HDL CHOLESTEROL 112 <130 mg/dL (calc) [facility] Comment: For patients with diabetes plus 1 major ASCVD risk factor, treating to a non-HDL-C goal of <100 mg/dL (LDL-C of <70 mg/dL) is considered a therapeutic option. Blood Blood / Unknown 02/24/2024 1 0:26 AM EDT 02/24/2024 10:27 AM EDT Narrative [employer] - 02/25/2024 9:00 AM EDT FASTING:NO Poly MELVINC LAB - BLOOD DRAW Final Resul t [employer] [facility] [address] [place] [address], [employer] [address] [address] * HEPATITIS C AB W/RFLX HCV RNA, QT, RT PCR (11/25/2023 11:27 AM EDT) Pathologist [facility] HEPATITIS C ANTIBODY NON-REACT ANTHONY NON-REACT ANTHONY [facility] Comment: HCV antibody was non-reactive. There is no laboratory evidence of HCV infection. In most cases, no further action is required. However, if recent HCV exposure is suspected, a test for HCV RNA (test code 92387) is suggested. For additional information please refer to http://[employer].Chekkt.com/faq/IMC03c4 (This link is being provided for informational/ educational purposes only.) Blood Blood / Unknown 11/25/2023 1 1:27 AM EDT 11/25/2023 11:28 AM EDT Narrative [employer] - 11/28/2023 4:55 PM EDT FASTING:YES us Poly Gudino PA-C LAB - BLOOD DRAW Edited Resu lt - Final [facility] [address] [place] [phone], [employer] [place] [employer] [address] [place] [phone] * HIV 1/2 AG & AB W/RFLX (4TH GEN) (11/25/2023 11:27 AM EDT) Pathologist [facility] HIV AG/AB, 4TH GEN NON-REAC TIVE NON-REAC TIVE [facility] Comment: HIV-1 antigen and HIV-1/HIV-2 antibodies were not detected. There is no laboratory evidence of HIV infection. PLEASE NOTE: This information has been disclosed to you from records whose confidentiality may be protected by state law. If your state requires such protection, then the state law prohibits you from making any further disclosure of the information without the specific written consent of the person to whom it pertains, or as otherwise permitted by law. A general authorization for the release of medical or other information is NOT sufficient for this purpose. For additional information please refer to http://[employer].Cart[employer]cuer.Science Fantasy/faq/IXW467 (This link is being provided for informational/ educational purposes only.) The performance of this assay has not been clinically validated in patients less than 2 years old. Blood Blood / Unknown 11/25/2023 1 1:27 AM EDT 11/25/2023 11:28 AM EDT Narrative [facility] - 11/28/2023 4:55 PM EDT FASTING:YES Poly Gudino PA-C LAB - BLOOD DRAW Final Resul t [facility] [address] [address], [facility] [place] [facility] [address] [place] [address] from Last 3 Months or Most Recently Relevant to Health Maintenance Insurance [place] MEDICA[place] [facility] Care Teams Tone Regulator Relationship Specialty Start Date End Date Poly Gudino PA-C [address] [place] [address] PCP - General Internal Medicine 05/27/23
--- OUTSIDE RECORDS SUMMARY | 2025-03-13 15:11 | XMS_ITS | Clinical Summary ---
Author Organization [address] [facility] Address [address] [place] [address] Phone Care Team Providers Care Manager Beverage Name Role Phone Poly Gudino Primary Care [...] (BMI) of 45.0 to 49.9 in adult ([facility] V24, [facility] V28) 05/10/2024 Inverted nipple 12/20/2018 Menorrhagia with regular [...] Hypertension/CHF/CAD Annual BMP Blood Test 08/05/2024 08/05/2023 Depression Screening 08/15/2024 Influenza Vaccine (#1) 2025 , 06/04/2018, 05/26/2017 Cholesterol Screening (Lipid Panel) 02/23/2029 02/24/2024, 08/05/2023 DTaP,Tdap,and Td Vaccines (3 - Td or Tdap) 08/20/2032 08/20/2022, 08/29/2011 Hepatitis C Screening Completed 11/25/2023 Pneumococcal Vaccine: Pediatrics (0 to 5 Years) and At-Risk Patients (6 to 49 Years) Completed 02/24/2024, 05/26/2017 HIB Vaccines Aged [...] evaluation. Hawa Mckeon MD IMG BI PROCEDURES Final Res ult from Last 3 Months or Most Recently Relevant to Health Maintenance Insurance MEDICAID - [place] Care Teams Manager Beverage Relationship Specialty Start Date End Date Poly Gudino PA [address] [place] [address] PCP - General 02/24/24
== END 2025-03-13 14:56 | disposition home or self-care (01) ==
LOC: HO.HOS 14:29
PROVIDERS: PCP Physician Assistant; Visit Provider Orthopaedic Surgery
DX: M25.561 Pain in right knee (principal)
CPT/HCPCS: 99024

== ENCOUNTER → 2025-03-13 14:28 | Outpatient (BNVA) | payer MEDICAID, SELFPAY | PROVIDERS: PCP Physician Assistant; Visit Provider Orthopaedic Surgery | DX: M25.561 Pain in right knee (principal) | CPT/HCPCS: 99212 ==

== ENCOUNTER 2025-05-09 11:32 | Outpatient (AMB) | payer MEDICAID, SELFPAY ==
--- OUTSIDE RECORDS SUMMARY | 2025-05-06 13:00 | XMS_ITS | Encounter Summary ---
Author Organization [facility] Address [address] [place] [address] Care Team Providers Care Magazine Feeder Name Role Phone Poly Gudino PA-C Primary Care Provider + [phone] Encounter Details Date Type Department Care Team ([facility] st Contact Info) Description 05/06/2025 1:00 PM EDT Office Visit [facility] [address] [place] [phone] Bacilio Lai DMD [address] [place] [address] Social History Tobacco Use Types Packs/Day Years [...] AM PST documented as of this encounter Last Filed Vital Signs Vital Sign Reading Time Taken Comments Blood Pressure 149/97 05/06/2025 1:32 PM EDT Pulse 70 05/06/2025 1:32 PM EDT Temperature - - Respiratory Rate - - Oxygen Saturation - - Inhaled Oxygen Concentration - - Weight - - Height - - Body Mass Index - - documented in this encounter Progress Notes * Bacilio Lai DMD - 05/06/2025 3:38 PM EDT Patient: Brittney Alamo : 1980 05/06/2025 3:38 PM EDT Dental Limited Exam I think I have a root tip in my UR Alerts: None Allergies: Patient has no known allergies. 05/06/2025 1:32 PM BP (!) 149/97 Pulse 70 BP Site Left Arm BP Position Sitting BP Cuff Size Large Adult Pain Score 0 - No pain Radiographs: PA #5 Subjective: Chief Complaint: UR NO PAIN. Duration: 2 week(s) Medication: None Objective: Clinical/Radiographic findings: Tooth/Teeth # 5 lack of coronal part, subgingival margins. Assessment: Non restorable tooth #5 Plan/Tx: Limited exam. Discussed with pt findings, treatment options, risks, benefits, alternatives. Extraction #5 Referral: None Rx: No orders of the defined types were placed in this encounter. Next Visit: Extraction #5 Lumber Sorter: Akua Lai DMD documented in this encounter Plan of Treatment Upcoming Encounters Date Type Department Care Team (Late st Contact Info) Description 05/10/2025 4:00 PM EDT Office Visit [address] [phone] Bacilio Lai DMD [address] [place] [phone] 05/15/2025 3:40 PM EDT Office Visit [address] [phone] Joseph Pena DDS [address] [place] [address] Scheduled Orders Name Type Priority Associated Diagnoses Order Schedule 4 DO 4 DO RESIN-BASED COMPOSITE - TWO SURFACES POSTERIOR Dental Procedures Routine 1 Occurrenc es starting 05/06/2025 documented as of this encounter Procedures Procedure Name Priority Date/Time Associated Diagnosis Comments CASE PRESENTATION SUBS DTL & EXTENSIVE TX PLN Routine 05/06/2025 1:00 PM EDT Retained tooth root BITEWING - SINGLE RADIOGRAPHIC IMAGE Routine 05/06/2025 1:00 PM EDT Caries Retained tooth root INTRAORAL - PERIAPICAL FIRST RADIOGRAPHIC IMAGE Routine 05/06/2025 1:00 PM EDT Caries Retained tooth root LIMITED ORAL EVALUATION - PROBLEM FOCUSED Routine 05/06/2025 1:00 PM EDT Caries Retained tooth root documented in this encounter Visit Diagnoses Diagnosis Retained tooth root- Primary Retained dental root Caries Unspecified dental caries documented in this encounter Additional Health Concerns Assessment Noted Time PHQ-9 Depression Total Score: 12 025 2:43 PM PDT A Depression follow-up plan has been documented for the patient 02/24/2024 10:49 AM PDT documented as of this encounter Care Teams Magazine Feeder Relationship Specialty Start Date End Date Poly Gudino PA-C [address] [place] [address] PCP - General Internal Medicine 05/27/23 documented as of this encounter
[2025-05-09 11:39] VITALS: BMI 48.2
--- NOTE | 2025-05-09 11:39 | MHC.OFFVIS ---
Vital Signs 05/09/25 11:39 Height 5 ft 7 in Weight 308 lb BMI 48.2 Intake Visit Reasons: OV- RT Knee 12/21/24 Intake Note: Brittney is a 44 year old female who presents with complaints of right knee pain. She describes her pain as sharp in nature. She did undergo right knee arthroscopic surgery earlier this year. She got fairly good relief from that surgery initially. She has failed the last 3 months of conservative treatment which has included Tylenol, anti-inflammatory medicines, a home exercise program and physical therapy exercises. She states that her pain is most noticeable when she is going up and down stairs. She denies any locking or giving way. Most of the pain is along the anterior aspect of her knee. Allergies No Known Allergies Allergy (Verified 05/09/25 11:45) Medication List - Last Reconciled 05/09/25 by Steven Knight MD acetaminophen 500 mg PO Q6H PRN folic acid 1 mg PO DAILY hydroxyzine HCl 10 - 20 mg PO TID PRN ibuprofen 800 mg PO Q8H PRN 30 days pantoprazole 40 mg PO BID PFSH Medical History (Updated 05/09/25 @ 12:59 by Steven Knight MD) Occasional cigarette smoker Anemia Anxiety Thyroid nodule GERD (gastroesophageal reflux disease) Surgical History Hx of colonoscopy History of esophagogastroduodenoscopy (EGD) Hx of cholecystectomy Hx of appendectomy Hx of thyroidectomy Social History Are you a primary nurse behavioral health care to a significant other at home: No Do you presently have visiting nurse or other home services: No Alcohol intake: current Alcohol intake frequency: holidays/special occasions only Patient Tobacco Use Status: Current someday Tobacco user Tobacco use type: Cigarette Current occupational status: employed 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 Alamo presents with right knee pain due to osteoarthritis. I had a lengthy discussion with the patient regarding the treatment options. She has had cortisone injections in the past which gave her minimal relief. Thus, I will see if her insurance company will cover a viscosupplementation injection, such as Durolane, for her right knee. I will see her back once the injection is available. I have cleared her to return to work. Feel free to call me at any time should questions regarding her orthopedic management arise. I spent 20 minutes in reviewing the patient's records and imaging studies, seeing the patient and documenting in the medical record. Coding Level of Care Code Est Pt Level 3 (11204) Complex EM visit Add On G2211 Diagnoses Osteoarthritis of right knee M17.11
--- OUTSIDE RECORDS SUMMARY | 2025-05-09 16:21 | XMS_ITS | Clinical Summary ---
Author Organization [facility] Address [address] [place] [address] Care Team Providers Care Carrier Blower Name Role Phone Poly Gudino PA-C Primary Care Provider + [phone] Source Comments PLEASE NOTE, if this patient [...] BEFORE FOOD 90 Tablet 1 4 Active tranexamic acid (LYSTEDA) 650 mg tablet Take 2 Tablets by mouth 3 (three) times daily for 90 days During menses only. 90 Tablet 2 5 Active mefenamic acid (PONSTEL) 250 mg capsule Take 1 Capsule by mouth every 8 (eight) hours as needed for pain or other reason (during menses only. Take with acetaminophen but do not use ibuprofen nor naproxen) 60 Capsule 3 5 Active norethindrone acetate (AYGESTIN) 5 mg tablet Take 1 Tablet by mouth once daily. 30 Tablet 2 5 Active folic acid (FOLVITE) 1 mg tabletIndicati ons:Low folate TAKE 1 TABLET BY MOUTH EVERY DAY 90 Tablet 5 Active Active Problems Problem Noted Date [...] Encounters Date Type Department Care Team Description 05/06/2025 1:00 PM EDT Office Visit [facility] [address] [place] [address] Bacilio Lai DMD 04/01/2025 Results Follow-Up [address] [phone] Poly Gudino PA-C 03/19/2025 Telemedicine Visit [address] [phone] Angelina Lozano RN 02/20/2025 2:40 PM EDT Office Visit [address] [phone] Poly Gudino PA-C from Last 3 Months Immunizations Immunization Administration [...] Pulse 70 05/06/2025 1:32 PM EDT Temperature 36.9 C (98.4 F) 10/31/2024 11:50 AM EDT Respiratory Rate 16 02/20/2025 2:45 PM EDT Oxygen Saturation 99% 02/20/2025 2:45 PM EDT Inhaled Oxygen Concentration - - Weight 137.8 kg (303 lb 12.8 oz) 02/20/2025 2:45 PM EDT Height 167.6 cm (5' 6 ) 02/20/2025 2:45 PM EDT Body Mass Index 49.03 02/20/2025 2:45 PM EDT Plan of Treatment Upcoming Encounters Date Type Department Care Team (Late st Contact Info) Description 05/10/2025 4:00 PM EDT Office Visit [address] [phone] Bacilio Lai DMD [address] [place] [address] 05/15/2025 3:40 PM EDT Office Visit [address] [phone] Joseph Pena DDS [address] [place] [phone] Health Maintenance Due Date Last Done Comments HPV Screening 1981 Pap + HPV 1981 Imm-HPV (1 - 3-dose SCDM series) 2008 Cervical Cancer Screening 01/14/2024 Pap Smear 01/14/2024 01/13/2021 Imm-Hepatitis B (2 of 2 - Cp G 2-dose series) 03/23/2024 02/24/2024 Dental BW 10/14/2024 10/12/2023 Dental Examination 10/14/2024 10/12/2023 Dental Perio Charting 10/14/2024 10/12/2023 Dental Prophy 10/14/2024 10/12/2023 Relationship Safety Screening/Counseling 11/24/2024 11/25/2023, 08/20/2022 Anxiety Screening 02/09/2025 02/10/2024 Annual Wellness (Adult): Indicated (All Coverage) 02/23/2025 02/24/2024, 08/20/2022 Breast Cancer Screening (Mammogram) 03/14/2025 03/14/2024 [id number] ( season) 2025 06/03/2022, 06/03/2022, 12/19/2021, Additional history exists Imm-Influenza (#1) 2025 06/03/2022, 1 , 05/26/2017 Depression Monitoring 05/23/2025 02/20/2025 , 10/31/2024, 02/24/2024, Additional history exists Tobacco Cessation Counseling (#1) 02/20/2026 023 Hypertension Screening (#1) 05/06/2026 Diabetes Screening 02/23/2027 02/24/2024, 0 02/24/2024, 08/05/2023, Additional history exists Lipid Screening 02/23/2027 02/24/2024, 07/16, 08/20/2022 Dental FMX/Pano 10/14/2028 10/12/2023 Imm-DTaP/Tdap/Td (3 - Td or Tdap) 08/20/2032 023, 08/29/2011 HIV Screening Completed 11/25/2023, 02/14, 02/14/2023, Additional history exists Hepatitis C Screening Completed 11/25/2023 , 02/14/2023, 08/20/2022 Imm-Pneumococcal Completed 02/24/2024, 05/26/2017 Alcohol and Drug Screen Completed 11/01/19 25, 11/25/2023, 02/01/2023, Additional history exists Cervical Ablation/Cold-Knife Conization Discontinued Cervical Cryotherapy Discontinued Colposcopy Discontinued Endometrial Biopsy Discontinued Excision/Leep Discontinued HPV Genotyping Discontinued Vaginal Pap Discontinued Vulvoscopy Discontinued Procedures Procedure Name Priority Date/Time Associated Diagnosis Comments BITEWING - SINGLE RADIOGRAPHIC IMAGE Routine 05/06/2025 1:00 PM EDT Caries Retained tooth root CASE PRESENTATION SUBS DTL & EXTENSIVE TX PLN Routine 05/06/2025 1:00 PM EDT Retained tooth root INTRAORAL - PERIAPICAL FIRST RADIOGRAPHIC IMAGE Routine 05/06/2025 1:00 PM EDT Caries Retained tooth root LIMITED ORAL EVALUATION - PROBLEM FOCUSED Routine 05/06/2025 1:00 PM EDT Caries Retained tooth root US SOFT TISSUE NECK Routine 03/28/2025 3 :00 AM EDT Neck mass REFERRAL SCANNED DOCUMENT 03/13/2025 3:00 AM EDT THYROID AUTOANTIBODIES (TBG, TPO) Routine 02/20/2025 3:10 PM EDT Abnormal uterine bleeding (AUB) BLOOD COUNT COMPLETE AUTOMATED Routine 02/20/2025 3:10 PM EDT Abnormal uterine bleeding (AUB) TSH W/RFLX FREE T4 Routine 02/20/2025 3: 10 PM EDT Abnormal uterine bleeding (AUB) ASSAY OF PROLACTIN Routine 02/20/2025 3: 10 PM EDT Abnormal uterine bleeding (AUB) REFERRAL FOR MAMMOGRAM Routine 3:00 AM EDT [...] Recently Relevant to Health Maintenance Results * US SOFT TISSUE NECK (03/28/2025 3:00 AM EDT) 03/28/2025 3:00 AM EDT us Poly Gudino PA-C IMG ULTRASOUND Final Result [facility] Corporate Office [address], [address] [place] [address], [place] [phone] * REFERRAL SCANNED DOCUMENT (03/13/2025 3:00 AM EDT) 03/13/2025 3:00 AM EDT us Poly Gudino PA-C SCAN REFERRAL Final Result * TSH W/RFLX FREE T4 Routine (02/20/2025 3:10 PM EDT) TSH W/REFLEX TO FT4 3.33 0.40 - 4.50 mIU/L [facility] Comment: Reference Range > or = 20 Years 0.40-4.50 Ranges First trimester 0.26-2.66 Second trimester 0.55-2.73 Third trimester 0.43-2.91 Blood Blood / Unknown 02/20/2025 3 :10 PM EDT 02/20/2025 3:10 PM EDT Fang Formisano DO LAB - BLOOD DRAW Edited Result - Final Performing Organization Address City/[facility]/ZIP Co de Phone Number [facility] [address] [address], [facility] [address] [phone] * THYROID AUTOANTIBODIES (TBG, TPO) Routine (02/20/2025 3:10 PM EDT) Pathologist [facility] THYROGLOBULIN ANTIBODIES <1 < or = 1 IU/mL [facility] THYROID PEROXIDASE ANTIBODIES <1 <9 IU/mL [facility] Blood Blood / Unknown 02/20/2025 3 :10 PM EDT 02/20/2025 3:10 PM EDT Fang Formisano DO LAB - BLOOD DRAW Final Result Performing Organization Address [facility]/ZIP Co de Phone Number [facility] [address] [address], [facility] [address] [address] * (ABNORMAL) BLOOD COUNT COMPLETE AUTOMATED Routine (02/20/2025 3:10 PM EDT) WHITE BLOOD CELL COUNT 8.4 3.8 - 10.8 Thousand/ uL [facility] RED BLOOD CELL COUNT 5.20(H) 3.80 - 5.10 Million/u L [facility] HEMOGLOBIN 11.2(L) 11.7 - 15.5 g/dL [facility] HEMATOCRIT 38.9 35.0 - 45.0 % [facility] MCV 74.8(L) 80.0 - 100.0 fL [facility] MCH 21.5(L) 27.0 - 33.0 pg [facility] MCHC 28.8(L) 32.0 - 36.0 g/dL [facility] Comment: For adults, a slight decrease in the calculated MCHC value (in the range of 30 to 32 g/dL) is most likely not clinically significant; however, it should be interpreted with caution in correlation with other red cell parameters and the patient's clinical condition. RDW 17.0(H) 11.0 - 15.0 % [facility] PLATELET COUNT 270 140 - 400 Thousand/ uL [facility] MPV 11.0 7.5 - 12.5 fL [facility] Blood Blood / Unknown 02/20/2025 3 :10 PM EDT 02/20/2025 3:10 PM EDT Fang [employer] DO LAB - BLOOD DRAW Edited Result - Final Performing Organization Address [facility] de Phone Number [facility] [address] [address], [facility] [address] [phone] * ASSAY OF PROLACTIN Routine (02/20/2025 3:10 PM EDT) Pathologist [facility] PROLACTIN 9.3 2.0 - 30.00 ng/mL [facility] Comment: Reference Range Females Non- 3.0-30.0 10.0-209.0 Postmenopausal 2.0-20.0 Blood Blood / Unknown 02/20/2025 3 :10 PM EDT 02/20/2025 3:10 PM EDT Fang Formisano DO LAB - BLOOD DRAW Edited Result - Final Performing Organization Address City/[facility] Co de Phone Number [facility] [address] [address], [facility] [address] [phone] * REFERRAL FOR MAMMOGRAM SCREENING (03/14/2024 3:00 AM EDT) 03/14/2024 3:00 AM EDT Poly Gudino PA-C IMG RFL MAMMO Final Result * HGA1C W/EAG (02/24/2024 10:26 AM EDT) HEMOGLOBIN A1C 5.3 <5.7 % of total Hgb [facility] Comment: For the purpose of screening for the presence of diabetes: <5.7% Consistent with the absence of diabetes 5.7-6.4% Consistent with increased risk for diabetes (prediabetes) > or =6.5% Consistent with diabetes This assay result is consistent with a decreased risk of diabetes. Currently, no consensus exists regarding use of hemoglobin A1c for diagnosis of diabetes in children. According to [place] Diabetes Association (ADA) guidelines, hemoglobin A1c <7.0% represents optimal control in non- diabetic patients. Different metrics may apply to specific patient populations. Standards of Medical Care in Diabetes(ADA). EAG (MG/DL) 105 mg/dL [facility] EAG (MMOL/L) 5.8 mmol/L [facility] Blood Blood / Unknown 02/24/2024 1 0:26 AM EDT 02/24/2024 10:27 AM EDT Narrative [facility] - 02/25/2024 9:00 AM EDT FASTING:NO us Poly Gudino PA-C LAB - BLOOD DRAW Edited Resu lt - Final [facility] [address] [place] [address], [facility] [address] [place] [phone] * LIPIDS W RFLX TO DIRECT LDL (02/24/2024 10:26 AM EDT) Pathologist [facility] CHOLESTEROL, TOTAL 169 <200 mg/dL [facility] HDL CHOLESTEROL 57 > OR = 50 mg/dL [facility] TRIGLYCERIDES 86 <150 mg/dL [facility] LDL-CHOLESTEROL 94 99 mg/dL (calc) [facility] Comment: Reference range: <100 Desirable range <100 mg/dL for primary prevention; <70 mg/dL for patients with CHD or diabetic patients with > or = 2 CHD risk factors. LDL-C is now calculated using the Amrit calculation, which is a validated novel method providing better accuracy than the Friedewald equation in the estimation of LDL-C. Choco SS et al. HUNTER. 2013;310(19): 8394-9912 (http://education.Checkout10.[employer]faq/BTK590) CHOL/HDLC RATIO 3.0 <5.0 (calc) [facility] NON-HDL CHOLESTEROL 112 <130 mg/dL (calc) [facility] Comment: For patients with diabetes plus 1 major ASCVD risk factor, treating to a non-HDL-C goal of <100 mg/dL (LDL-C of <70 mg/dL) is considered a therapeutic option. Blood Blood / Unknown 02/24/2024 1 0:26 AM EDT 02/24/2024 10:27 AM EDT Narrative [facility] - 02/25/2024 9:00 AM EDT FASTING:NO Fooooo PA-C LAB - BLOOD DRAW Final Resul t [facility] [address] [address], [facility] [address] [place] [address] * HEPATITIS C AB W/RFLX HCV RNA, QT, RT PCR (11/25/2023 11:27 AM EDT) HEPATITIS C ANTIBODY NON-REACT ANTHONY NON-REACT ANTHONY [facility] Comment: HCV antibody was non-reactive. There is no laboratory evidence of HCV infection. In most cases, no further action is required. However, if recent HCV exposure is suspected, a test for HCV RNA (test code 02336) is suggested. For additional information please refer to http://education.Eyenalyze.[employer]faq/KRP35d6 (This link is being provided for informational/ educational purposes only.) Blood Blood / Unknown 11/25/2023 1 1:27 AM EDT 11/25/2023 11:28 AM EDT Narrative [facility] - 11/28/2023 4:55 PM EDT FASTING:YES Fooooo PA-C LAB - BLOOD DRAW Edited Resu lt - Final Performing Organization Address [facility]/ZIP Co de Phone Number [facility] [address] [address], [facility] [address] [phone] * HIV 1/2 AG & AB W/RFLX (4TH GEN) (11/25/2023 11:27 AM EDT) HIV AG/AB, 4TH GEN NON-REAC TIVE NON-REAC TIVE [facility] Comment: HIV-1 antigen and HIV-1/HIV-2 antibodies were [...] purpose. For additional information please refer to http://education.NativeEnergy/faq/HSJ642 (This link is being provided for informational/ educational purposes only.) The performance of this assay has not been clinically validated in patients less than 2 years old. Blood Blood / Unknown 11/25/2023 1 1:27 AM EDT 11/25/2023 11:28 AM EDT Narrative [facility] - 11/28/2023 4:55 PM EDT FASTING:YES Poly Gudino PA-C LAB - BLOOD DRAW Final Resul t Performing Organization Address [facility]/ZIP Co de Phone Number [facility] [address] [address], [facility] [address] [phone] from Last 3 Months or Most Recently Relevant to Health Maintenance [place] [facility] [address] ACO Care Teams Carrier Blower Relationship Specialty Start Date End Date Poly Gudino PA-C [facility] [place] [address] PCP - General Internal Medicine 05/27/23
--- OUTSIDE RECORDS SUMMARY | 2025-05-09 16:21 | XMS_ITS | Clinical Summary ---
Author Organization [facility] Address [address] [place] [address] Care Team Providers Care Cdl Flatbed Truck Driver Name Role Phone Poly Gudino PA-C Primary [...] age to complete this topic Care Teams Cdl Flatbed Truck Driver Relationship Specialty Start Date End Date Poly Gudino PA-C [address] [place] [address] PCP - General Physician Placement Coordinator 02/02/24
== END 2025-05-09 12:11 | disposition home or self-care (01) ==
LOC: HO.HOS 11:32
PROVIDERS: PCP Physician Assistant; Visit Provider Orthopaedic Surgery
DX: M17.11 Unilateral primary osteoarthritis, right knee (principal)
CPT/HCPCS: 99213

== ENCOUNTER → 2025-05-09 11:32 | Outpatient (BNVA) | payer MEDICAID, SELFPAY | PROVIDERS: PCP Physician Assistant; Visit Provider Orthopaedic Surgery | DX: M17.11 Unilateral primary osteoarthritis, right knee (principal); M25.561 Pain in right knee | CPT/HCPCS: 99212 ==